=== PATIENT | female | born 1950 | race Caucasian/White ===

== ENCOUNTER → 2020-04-21 | Outpatient (CLI) | payer MEDICARE | LOC: COL.RAD 07:04 | DX: N20.0 Calculus of kidney (principal); K63.89 Other specified diseases of intestine; Z90.12 Acquired absence of left breast and nipple; Z90.49 Acquired absence of other specified parts of digestive tract; Z90.710 Acquired absence of both cervix and uterus ==

== ENCOUNTER → 2020-07-05 | Outpatient (CLI) | payer MEDICARE | LOC: COL.VAS 11:54 | DX: N18.4 Chronic kidney disease, stage 4 (severe) (principal) ==

== ENCOUNTER 2020-09-19 08:01 | Inpatient (IN) | payer MEDICARE ==
[~2020-09-19] VITALS: Ht 160 cm; Wt 93.7 kg
[2020-09-19 08:35] VITALS: BP 159/72; PULSE 66; TEMP 97.7
[2020-09-19] MEDS ORDERED: LASIX 40MG TABL40 MG PO (09:02)
[2020-09-19] MEDS ORDERED: PRILOSEC 20MG20 MG PO (09:03)
[2020-09-19] MEDS ORDERED: ZESTRIL30 MG PO (09:03)
[2020-09-19 09:26] LABS: BASO # 0.1 (0.0-0.2); BASO % 0.6 % (0.0-2.0); EOS # 0.4 (0.0-0.7); EOS % 4.3 % (0-4.0); GRAN # 7.1 (1.4-6.5); GRAN % 75.4 % (42.2-75.2); LYMPH # 1.3 (1.2-3.4); LYMPH % 13.9 % (20.0-51.0); MEAN CELL VOLUME 82 fl (80.0-100.0); MEAN CORPUSCULAR HGB CONC 32 g/dl (33.0-37.0); MEAN PLATELET VOLUME 9.5 fl (7.4-10.4); MONO # 0.5 (0.1-0.6); MONO % 5.5 % (1.7-9.3); PLATELET COUNT 204 K/mm3 (130-400); RED BLOOD COUNT 3.44 M/mm3 (4.10-5.30); REDCELL DISTRIBUTION WIDTH-CV 16.3 % (11.5-14.5)
[2020-09-19 09:28] LABS: HEMATOCRIT 28.2 % (37.0-47.0); HEMOGLOBIN 9.1 g/dl (12.5-16.0); MEAN CORPUSCULAR HEMOGLOBIN 26 pg (27.0-31.0)
[2020-09-19] MEDS ORDERED: NORVASC 5MG5 MG/TAB PO (09:28)
[2020-09-19] MEDS ORDERED: IMURAN 50MG TAB50 MG PO (09:29)
[2020-09-19] MEDS ORDERED: HYGROTON 2525 MG/TAB (09:33)
[2020-09-19 09:34] LABS: ALBUMIN 3.1 gm/dL (3.5-5.0); BILIRUBIN,TOTAL 0.5 mg/dL (0.0-1.0); CALCIUM 8.2 mg/dL (8.4-10.2); CREATININE, serum 7.27 (0.52-1.25); PHOSPHOROUS 6.5 mg/dL (2.5-4.5); POTASSIUM 3.3 mmol/L (3.4-5.0); TOTAL PROTEIN 5.4 gm/dL (6.4-8.2)
[2020-09-19] MEDS ORDERED: VITAMIN D31000 IU PO (09:35)
[2020-09-19] MEDS ORDERED: COLESTID 1GM1 G PO (09:36)
[2020-09-19] MEDS ORDERED: CYMBALTA 20MG20 MG PO (09:36)
[2020-09-19] MEDS ORDERED: AMARYL4 MG PO (09:38)
[2020-09-19] MEDS ORDERED: LANTUS SOLOS100 U/ML SQ (09:39)
[2020-09-19] MEDS ORDERED: ZOCOR 40MG40 MG PO (09:40)
[2020-09-19] MEDS ORDERED: TRANDATE300 MG PO (09:42)
[2020-09-19] MEDS ORDERED: APRESOLINE 25MG25 MG PO (09:42)
[2020-09-19] MEDS ORDERED: RITUXAN 10100 MG/10 IV (09:43)
[2020-09-19 10:41] LABS: INR 1.2 (0.8-3.0); PROTHROMBIN TIME 13.2 SECONDS (9.7-12.8)
--- NOTE | 2020-09-19 10:47 | NUR ---
Pt admission completed and charted, medications, allergies, and pharmacy reviewed w/ pt. Pt is A&O, indpendent in room, on room air, breathing is even and unlabored, reports occasional SOB, does have a cough, nonproductive. LS cta upper lobes, diminished in bases. Pt has LFA fistual, bruit and thrill present, not used for dialysis at this time. HRRR. BS active X4. BLE edema 2-3+. Pulses strong bilaterally. Pt denies any pain at this time. Pt to have dialysis cath placed this afternoon and this dialysis. No further needs at this time. Call light within reach.
[2020-09-19 11:19] VITALS: BP 146/58; PULSE 73; TEMP 97.8
--- NOTE | 2020-09-19 12:20 | NUR ---
pt down for procedure at this time and then to dialysis afterwards.
[2020-09-19 12:22] VITALS: BP 153/82; PULSE 71
--- NOTE | 2020-09-19 12:23 | NUR ---
SEE MERGE DOCUMENTATION FOR MEDICATION ADMINISRATION TIMES AND INTRA/POST PROCEDURE SEDATION ASSESSMENTS.
--- NOTE | 2020-09-19 13:15 | NUR ---
Report called from open hearth laborer on pt and dialysis cath placement. Pt headed to dialysis at this time.
--- NOTE | 2020-09-19 16:00 | NUR ---
Pt back from dialysis at this time.
[2020-09-19 16:28] VITALS: BP 161/79; PULSE 77; TEMP 98.1
--- NOTE | 2020-09-19 19:50 | NUR ---
Patient assessed at this time. Alert and oriented x 4, and able to make needs known. Denies having pain and discomfort at this time. Peripheral INT to right forearm flushed. Site without redness, warmth, swelling, and pain. AV fistula to left forearm with positive bruit and thrill. HD catheter to right chest. Denies SOB and dyspnea. LS CTA in upper lobes, diminished in lower. Respirations even and unlabored. HRR. Capillary refill less than 3 seconds. Non-tenting skin turgor. BSAx4. Abdomen soft and non-tender. 1+ edema BUE, 2+ BLE. One assist with going to the bathroom. Urine clear and yellow. Voices no questions, needs, or concerns at this time. Resting in bed with call light within reach.
[2020-09-19 20:00] VITALS: BP 173/72; PULSE 88; TEMP 99.7
--- NOTE | 2020-09-19 21:00 | NUR ---
Patient's BS was 88. Refused Levemir.
--- NOTE | 2020-09-19 22:15 | NUR ---
Patient given PRN APAP at this time for level 5 pain to HD catheter to right chest.
[2020-09-19 23:40] LABS: HEPATITIS B SURFACE ANTIBODY <2.0 (()); HEPATITIS C VIRUS ANTIBODY Negative (Negative)
[2020-09-19 23:41] LABS: HEPATITIS B SURFACE ANTIGEN Negative (Negative)
[2020-09-19 23:59] VITALS: BP 177/77; PULSE 85; TEMP 98.5
--- NOTE | 2020-09-20 00:15 | NUR ---
Patient's BP 177/77. Given PRN Appresoline at this time.
[2020-09-20 03:57] VITALS: BP 177/82; PULSE 81; TEMP 98.9
[2020-09-20 06:12] LABS: BASO # 0.1 (0.0-0.2); BASO % 0.8 % (0.0-2.0); EOS # 0.3 (0.0-0.7); EOS % 3.4 % (0-4.0); GRAN # 6.2 (1.4-6.5); GRAN % 72.7 % (42.2-75.2); LYMPH # 1.4 (1.2-3.4); LYMPH % 15.9 % (20.0-51.0); MEAN CELL VOLUME 82 fl (80.0-100.0); MEAN CORPUSCULAR HGB CONC 32 g/dl (33.0-37.0); MEAN PLATELET VOLUME 9.4 fl (7.4-10.4); MONO # 0.6 (0.1-0.6); MONO % 6.7 % (1.7-9.3); PLATELET COUNT 205 K/mm3 (130-400); RED BLOOD COUNT 3.53 M/mm3 (4.10-5.30); REDCELL DISTRIBUTION WIDTH-CV 16.6 % (11.5-14.5)
--- NOTE | 2020-09-20 06:20 | NUR ---
Patient has received PRN Hydralazine twice this shift. No further complaints of pain or discomfort since receiving PRN APAP at beginning of shift. Voices no questions, needs, or concerns at this time. Resting in bed with call light within reach.
[2020-09-20 06:25] LABS: ALBUMIN 3.1 gm/dL (3.5-5.0); CALCIUM 8.2 mg/dL (8.4-10.2); CREATININE, serum 6.35 (0.52-1.25); PHOSPHOROUS 5.6 mg/dL (2.5-4.5); POTASSIUM 3.3 mmol/L (3.4-5.0)
[2020-09-20 06:28] LABS: HEMATOCRIT 29.1 % (37.0-47.0); HEMOGLOBIN 9.4 g/dl (12.5-16.0); MEAN CORPUSCULAR HEMOGLOBIN 27 pg (27.0-31.0)
--- NOTE | 2020-09-20 08:07 | NUR ---
PATIENT IS AT DIALYSIS, NO MORNING VITALS TAKEN BECAUSE OF NOT BEING PRESENT
[2020-09-20 11:17] VITALS: BP 161/70; PULSE 85; TEMP 98.4
--- NOTE | 2020-09-20 13:50 | NUR ---
Charge Lpn attempted to meet with patient however she is sleeping. Patient's , Juan Pablo (ph#[phone]) is at bedside and answered intake questions. Patient lives in [place] with Juan Pablo and sees Dr. Macdonald for primary care. Patient obtains medications from [facility] in [place] and does not use any DME. Juan Pablo advised that patient is independent with ADLS. Juan Pablo also advised patient will have dialysis upon discharge and he plans to provide transportation. Juan Pablo advised he can provide assistance to patient at home as needed after diaylsis sessions. Patient does not have Advance Directives. Patient has been working with PT/OT and plan is to return home upon discharge.
[2020-09-20 15:34] VITALS: BP 142/78; PULSE 78; TEMP 99
--- NOTE | 2020-09-20 18:44 | NUR ---
Pt assessment completed and charted, medications administered per mar after pt returned from dialysis. pt went to dialysis this morning around 8am returned before lunch. Pt did well, denies pain, dizziness, N/V/D, chest pain, SOB. Pt appears to be doing better today and not as lethargic. pt has RIJ dialysis cath, dressing changed during dialysis, CDI. LFA fistula present w/ thrill and bruit. RFA INT IV flushes well. No BP or BS coverage today. ZORAIDA Arnett called this nurse while patient was in dialysis rating pain 7/10 to rt knee, arthritis. Mclean PRN administered per jan. No further needs expressed throughout day.
[2020-09-20 20:27] VITALS: BP 187/77; PULSE 79; TEMP 98.8
--- NOTE | 2020-09-20 21:00 | NUR ---
Patient assessed at this time. Alert and oriented x 4, and able to make needs known. Denies having pain and discomfort at this time. Peripheral INT to right forearm. AV fistula to left arm with positive bruit and thrill. HD catheter to right chest, dressing CDI. Denies SOB and dypsnea. LS CTA. Respirations even and unlabored. HRR. Capillary refill less than 3 seconds. Non-tenting skin turgor. BSAx4. Abdomen soft and non-tender. 1+ edema BLE. Voices no questions, needs, or concerns at this time. Resting in bed with call light within reach.
[2020-09-21 00:18] VITALS: BP 180/77; PULSE 83; TEMP 100
[2020-09-21 03:10] VITALS: BP 186/71; PULSE 83; TEMP 99.5
--- NOTE | 2020-09-21 05:57 | NUR ---
Patient has denied having pain and discomfort this shift. Has voiced no questions, needs, or concerns. Patient received PRN Appresoline twice this shift due to elevated BPs. Resting in bed with call light within reach.
[2020-09-21 06:22] LABS: BASO # 0.1 (0.0-0.2); BASO % 0.9 % (0.0-2.0); EOS # 0.3 (0.0-0.7); EOS % 3.5 % (0-4.0); GRAN # 5.4 (1.4-6.5); GRAN % 68.1 % (42.2-75.2); LYMPH # 1.4 (1.2-3.4); LYMPH % 17.4 % (20.0-51.0); MEAN CELL VOLUME 84 fl (80.0-100.0); MEAN CORPUSCULAR HGB CONC 32 g/dl (33.0-37.0); MEAN PLATELET VOLUME 9.5 fl (7.4-10.4); MONO # 0.7 (0.1-0.6); MONO % 9.2 % (1.7-9.3); PLATELET COUNT 211 K/mm3 (130-400); RED BLOOD COUNT 3.62 M/mm3 (4.10-5.30); REDCELL DISTRIBUTION WIDTH-CV 16.6 % (11.5-14.5)
[2020-09-21 06:24] LABS: HEMATOCRIT 30.5 % (37.0-47.0); HEMOGLOBIN 9.7 g/dl (12.5-16.0); MEAN CORPUSCULAR HEMOGLOBIN 27 pg (27.0-31.0)
[2020-09-21 06:34] LABS: ALBUMIN 3.1 gm/dL (3.5-5.0); CALCIUM 8.3 mg/dL (8.4-10.2); CREATININE, serum 5.56 (0.52-1.25); PHOSPHOROUS 4.4 mg/dL (2.5-4.5); POTASSIUM 3.6 mmol/L (3.4-5.0)
[2020-09-21 07:38] VITALS: BP 178/66; PULSE 78; TEMP 98.5
--- NOTE | 2020-09-21 08:44 | NUR ---
PATIENT IS DOWN IN DIALYSIS. REPORTING SOME DULL ACHY KNEE PAIN THAT A NORCO WAS GIVEN FOR. PATIENT IS ALERT AND ORIENTATED X4. PATIENT IS TOELRATING DIALYSIS JUST FINE.
[2020-09-21] MEDS ORDERED: PHOS LO PO (10:00)
[2020-09-21] MEDS ORDERED: LASIX 40MG TABL40 MG PO (10:00)
[2020-09-21] MEDS ORDERED: IMURAN 50MG TAB50 MG PO ×3 (10:06→10:49)
[2020-09-21] MEDS ORDERED: NORVASC 5MG5 MG/TAB PO (10:07)
[2020-09-21 12:12] VITALS: BP 164/71; PULSE 79; TEMP 99
== END 2020-09-21 13:15 | disposition home or self-care (01) | DRG 640 ==
LOC: MEDICAL 08:01
PROVIDERS: ADMIT Internal Medicine Nephrology
PROC: 0JH63XZ Insertion of Tunneled Vascular Access Device into Chest Subcutaneous Tissue and Fascia, Percutaneous Approach (ICD-10-PCS; principal; 2020-09-19)
PROC: 02H633Z Insertion of Infusion Device into Right Atrium, Percutaneous Approach (ICD-10-PCS; 2020-09-19)
PROC: 5A1D70Z Performance of Urinary Filtration, Intermittent, Less than 6 Hours Per Day (ICD-10-PCS; 2020-09-21)
DX: E87.70 Fluid overload, unspecified (principal); N18.6 End stage renal disease; I12.0 Hypertensive chronic kidney disease with stage 5 chronic kidney disease or end stage renal disease; N25.81 Secondary hyperparathyroidism of renal origin; I16.0 Hypertensive urgency; E66.9 Obesity, unspecified; M06.9 Rheumatoid arthritis, unspecified; E11.22 Type 2 diabetes mellitus with diabetic chronic kidney disease; E78.5 Hyperlipidemia, unspecified; K21.9 Gastro-esophageal reflux disease without esophagitis; F32.9 Major depressive disorder, single episode, unspecified; D63.1 Anemia in chronic kidney disease; M19.90 Unspecified osteoarthritis, unspecified site; E83.39 Other disorders of phosphorus metabolism; E83.51 Hypocalcemia; Z85.820 Personal history of malignant melanoma of skin; Z79.4 Long term (current) use of insulin; Z68.36 Body mass index [BMI] 36.0-36.9, adult
CPT/HCPCS: J1644; J2250; J2916; J3010; J7030; J7500; Q5105

== ENCOUNTER 2020-12-21 16:12 | Emergency (ER) | payer MEDICARE ==
[~2020-12-21] VITALS: Ht 160 cm; Wt 78.0 kg
[~2020-12-21 16:12] MED LIST: AMARYL4 MG PO; APRESOLINE 25MG25 MG PO; COLESTID 1GM1 G PO; CYMBALTA 20MG20 MG PO; HYGROTON 2525 MG/TAB; IMURAN 50MG TAB50 MG PO; LANTUS SOLOS100 U/ML SQ; LASIX 40MG TABL40 MG PO; NORVASC 5MG5 MG/TAB PO; PHOS LO PO; PRILOSEC 20MG20 MG PO; RITUXAN 10100 MG/10 IV; TRANDATE300 MG PO; VITAMIN D31000 IU PO; ZESTRIL30 MG PO; ZOCOR 40MG40 MG PO
[2020-12-21 16:53] LABS: BASO # 0.1 (0.0-0.2); BASO % 0.9 % (0.0-2.0); EOS # 0.3 (0.0-0.7); EOS % 3.5 % (0-4.0); GRAN # 6.3 (1.4-6.5); GRAN % 73.9 % (42.2-75.2); HEMATOCRIT 37.7 % (37.0-47.0); LYMPH # 1.2 (1.2-3.4); LYMPH % 13.8 % (20.0-51.0); MEAN CELL VOLUME 92 fl (80.0-100.0); MEAN CORPUSCULAR HEMOGLOBIN 29 pg (27.0-31.0); MEAN CORPUSCULAR HGB CONC 32 g/dl (33.0-37.0); MEAN PLATELET VOLUME 9.8 fl (7.4-10.4); MONO # 0.6 (0.1-0.6); MONO % 7.4 % (1.7-9.3); PLATELET COUNT 222 K/mm3 (130-400); RED BLOOD COUNT 4.12 M/mm3 (4.10-5.30); REDCELL DISTRIBUTION WIDTH-CV 14.8 % (11.5-14.5)
[2020-12-21 17:05] LABS: ALBUMIN 4.4 gm/dL (3.5-5.0); BILIRUBIN,TOTAL 0.8 mg/dL (0.0-1.0); CALCIUM 9.7 mg/dL (8.4-10.2); CREATININE, serum 7.39 (0.52-1.25); POTASSIUM 4.4 mmol/L (3.4-5.0); TOTAL PROTEIN 7.1 gm/dL (6.4-8.2)
[2020-12-21 17:13] VITALS: TEMP 967.9
[2020-12-21 17:16] LABS: TROPONIN-I 0.02 ng/mL (0.000-0.035)
[2020-12-21 18:30] VITALS: BP 170/93; PULSE 62
== END 2020-12-21 18:30 | disposition home or self-care (01) ==
LOC: COL.ER 16:12
PROVIDERS: Emergency Medicine
DX: E11.649 Type 2 diabetes mellitus with hypoglycemia without coma (principal); E11.22 Type 2 diabetes mellitus with diabetic chronic kidney disease; N18.6 End stage renal disease; Z79.4 Long term (current) use of insulin; Z88.8 Allergy status to other drugs, medicaments and biological substances
CPT/HCPCS: J7030

== ENCOUNTER 2021-01-09 13:15 | Observation (INO) | payer MEDICARE ==
[~2021-01-09] VITALS: Ht 160 cm; Wt 82.3 kg
--- NOTE | 2021-01-09 13:20 | NUR ---
PT ARRIVED, ASSESSMENT PERFORMED, TECH OBTAINED VITALS, PT REPORTS NAUSEA, STICKERS AND BRACELET PRINTED FOR PATIENT. CALLED PT PHARMACY FOR CURRENT MED LIST. LEFT MESSAGE FOR DR MANCILLA AT 1400 NOTIFYING HIM THAT PT HAD ARRIVED AND THAT SHE HAS A HEADACHE AND IS NAUSEOUS.
[2021-01-09 13:30] VITALS: BP 176/70; PULSE 62; TEMP 97.8
--- NOTE | 2021-01-09 14:26 | NUR ---
BS 59, JUICE GIVEN TO PT, PLACED HYPOGLYCEMIA PROTOCOL, WILL RECHECK SUGAR
--- NOTE | 2021-01-09 14:29 | NUR ---
INES RETURNED CALL, NEW ORDERS IN PLACE, NOTIFIED OF LOW SUGAR
--- NOTE | 2021-01-09 14:53 | NUR ---
BS UP TO 96
[2021-01-09] MEDS ORDERED: LEVAQUIN 750MG750 M1 PO (14:54)
[2021-01-09] MEDS ORDERED: LEVAQUIN 5500 MG/TA1 PO (14:55)
[2021-01-09] MEDS ORDERED: NORCO 325 MG-51 TAB PO (14:56)
[2021-01-09] MEDS ORDERED: CELEBREX 200MG200 MG PO (15:02)
[2021-01-09] MEDS ORDERED: NORVASC 5MG5 MG/TAB PO (15:10)
[2021-01-09] MEDS ORDERED: IMURAN 50MG TAB50 MG PO (15:12)
--- NOTE | 2021-01-09 15:21 | NUR ---
INES NOTIFIED OF [facility] BS AND THAT MED REC WAS COMPLETED.
[2021-01-09 15:34] VITALS: BP 175/69; PULSE 64; TEMP 97.3
[2021-01-09 15:46] VITALS: BP 174/70; PULSE 65; TEMP 97.9
[2021-01-09 16:41] LABS: CALCIUM 8.9 mg/dL (8.4-10.2); CREATININE, serum 7.87 (0.52-1.25); POTASSIUM 4.3 mmol/L (3.4-5.0)
[2021-01-09 17:13] VITALS: BP 161/66
--- NOTE | 2021-01-09 17:17 | NUR ---
PT AOX4, HAS PRODUCTIVE COUGH, PT PLEASANT, AT BEDSIDE, BS STABLE, BP DEC W/ HYDRALAZINE, PT DENYING PAIN, PT HAS R CHEST DIALYSIS CATH AND LFA FISTULA, NO OTHER NEEDS AT THIS TIME.
--- NOTE | 2021-01-09 19:39 | NUR ---
PATIENT WAS RECEIVED IN THE [place] [facility] IN BED.DENIES PAIN.NO OTHER NEEDS AT THIS TIME.
[2021-01-09 20:24] VITALS: BP 185/76; PULSE 71; TEMP 98.3
--- NOTE | 2021-01-09 20:45 | NUR ---
UPDATED DR MANCILLA ABOUT THE PT.BG WAS 104 HE SAID I GIVE INSULIN LEVEMIR HALF THE DOSE.PATIENT DECLINED TO HAVE INSULIN.
[2021-01-10 00:13] VITALS: BP 177/71; PULSE 66; TEMP 98.1
--- NOTE | 2021-01-10 01:11 | NUR ---
PATIENT REPORTED OF INSOMNIA DR MANCILLA INFORMED,PLAN ORDER AMBIEN 10MG PO.SAME DONE.
[2021-01-10 04:13] VITALS: BP 156/66; PULSE 76; TEMP 98.1
--- NOTE | 2021-01-10 05:44 | NUR ---
PATIENT REMAINS CALM ,DUE MEDS GIVEN.DENIES PAIN AND VOMITTING.NO OTHER CONCERNS AT THIS TIME
--- NOTE | 2021-01-10 06:29 | NUR ---
PCT INFORMED ME THAT PT BG IS 56.PATIENT GIVEN APPLE JUICE.FOR RECHECK AFTER 15 MINUTES.
[2021-01-10 07:38] VITALS: BP 180/75; PULSE 69; TEMP 98.6
--- NOTE | 2021-01-10 09:13 | NUR ---
Initial visit; Capri thanked Or First Assist Registered Nurse for looking in on her and offering God's blessings and to keep her in [employer] Assist Registered Nurse's prayers.
--- NOTE | 2021-01-10 10:28 | NUR ---
BRENNA met with the patient and her , Juan Pablo (ph#[phone]), to discuss discharge plan. The patient lives in [place] with her . She reports independence with ADLs and has a walker available when needed. The patient's PCP is Dr. Adryan Macdonald and she receives her medications from [facility] in [place]. She reports no difficulties obtaining her meds. The patient does not have a DPOA-HC in EMR, but she states that she does have one completed and that it designates her . The patient plans to return home with her upon discharge. No additional needs at this time.
--- NOTE | 2021-01-10 10:58 | NUR ---
Pt assessment completed and charted, medications administered per jan. Pt A&O, independent in room, on room air, breathing is even and unlabored, UL LS cta, bases w/ coarse crackles. Pt states she has a productive cough, not observed at this time. RFA INT IV flushes well. LFA fistula, no dressing, has not been accessed yet. Pt has Rt chest dialysis cath w/ dressing CDI. BLE trace to 1+. Pulses stong bilaterally. BS active. Pt denies chest pain, N/V/D, SOB. Pt did have SBP of 180 this morning, receiving hydralazine PRN. Pt down to dialysis at this time.
[2021-01-10 11:15] LABS: BASO # 0.1 (0.0-0.2); BASO % 0.7 % (0.0-2.0); EOS # 0.5 (0.0-0.7); EOS % 4.8 % (0-4.0); GRAN % 73.7 % (42.2-75.2); LYMPH # 1.4 (1.2-3.4); LYMPH % 14.5 % (20.0-51.0); MEAN CELL VOLUME 92 fl (80.0-100.0); MEAN CORPUSCULAR HGB CONC 32 g/dl (33.0-37.0); MEAN PLATELET VOLUME 9.8 fl (7.4-10.4); MONO # 0.6 (0.1-0.6); MONO % 5.9 % (1.7-9.3); PLATELET COUNT 304 K/mm3 (130-400); RED BLOOD COUNT 3.28 M/mm3 (4.10-5.30); REDCELL DISTRIBUTION WIDTH-CV 13.9 % (11.5-14.5)
[2021-01-10 11:16] LABS: HEMATOCRIT 30.1 % (37.0-47.0); HEMOGLOBIN 9.6 g/dl (12.5-16.0); MEAN CORPUSCULAR HEMOGLOBIN 29 pg (27.0-31.0)
[2021-01-10 11:31] LABS: ALBUMIN 3.8 gm/dL (3.5-5.0); CALCIUM 8.8 mg/dL (8.4-10.2); CREATININE, serum 9.04 (0.52-1.25); PHOSPHOROUS 5.2 mg/dL (2.5-4.5); POTASSIUM 4.3 mmol/L (3.4-5.0)
--- NOTE | 2021-01-10 11:38 | NUR ---
ZORAIDA Arnett in dialysis called this nurse to inform her pt was nauseous and requesting zofran. This nurse administered per jan PRN. Pt requested ice water as well. No vomiting at this time.
--- NOTE | 2021-01-10 14:38 | NUR ---
Patient tolerated HD tx today, nausea but resolved with Zofran IVP. Removed 800 ml of fluid. Next HD tx planned for Friday01/12/21 @ 0800.
[2021-01-10 16:08] VITALS: BP 155/60; PULSE 64; TEMP 98.1
--- NOTE | 2021-01-10 16:59 | NUR ---
The patient's status was changed to observation. SW and RN Sales Account Executive met with the patient. RN Sales Account Executive explained the status change. SW presented and read the PATEL form outloud to the patient. The patient signed the form. BRENNA provided her with a copy.
--- NOTE | 2021-01-10 17:15 | NUR ---
Pt back from dialysis this afternoon, tolerated well after receiving zofran. Pt ate a late lunch and has been napping throughout the rest of the day. Pt BS checked, resulted at 65. Given juice, will recheck.
[2021-01-10 19:33] VITALS: BP 173/64; PULSE 68; TEMP 98.8
--- NOTE | 2021-01-10 20:30 | NUR ---
PATIENT IS CALM IN THE ROOM.DUE MEDS GIVEN ASSESSMENT DONE.DENIES PAIN.NO OTHER NEEDS AT THIS TIME.
[2021-01-10 23:13] VITALS: BP 181/61; PULSE 67; TEMP 98.4
--- NOTE | 2021-01-10 23:52 | NUR ---
BP ELEVATED 181/61 APPRESOLINE 25 MG GIVEN
[2021-01-11 03:58] VITALS: BP 178/67; PULSE 65; TEMP 98.4
[2021-01-11 05:59] VITALS: BP 159/71
--- NOTE | 2021-01-11 06:06 | NUR ---
PATIENT HAD A CALM NIGHT HAD ELEVATED SYSTOLIC BP.THIS MORNING ITS 159/71.REPORTS PAIN AT .NO OTHER NEEDS AT THIS TIME.
[2021-01-11 06:35] LABS: BASO # 0.1 (0.0-0.2); BASO % 0.7 % (0.0-2.0); EOS # 0.5 (0.0-0.7); EOS % 5.5 % (0-4.0); GRAN % 72.6 % (42.2-75.2); LYMPH # 1.2 (1.2-3.4); LYMPH % 14.2 % (20.0-51.0); MEAN CELL VOLUME 94 fl (80.0-100.0); MEAN CORPUSCULAR HGB CONC 31 g/dl (33.0-37.0); MONO # 0.6 (0.1-0.6); MONO % 6.8 % (1.7-9.3); PLATELET COUNT 271 K/mm3 (130-400)
[2021-01-11 06:45] LABS: HEMATOCRIT 30.1 % (37.0-47.0); HEMOGLOBIN 9.2 g/dl (12.5-16.0); MEAN CORPUSCULAR HEMOGLOBIN 29 pg (27.0-31.0)
[2021-01-11 06:50] LABS: ALBUMIN 3.5 gm/dL (3.5-5.0); CALCIUM 8.6 mg/dL (8.4-10.2); CREATININE, serum 5.86 (0.52-1.25); POTASSIUM 4.7 mmol/L (3.4-5.0)
[2021-01-11 07:23] VITALS: BP 161/61; PULSE 66; TEMP 98.4
--- NOTE | 2021-01-11 09:00 | NUR ---
Agree with student nurse assessment. Patient is hoping to go home today. A&Ox4. VSS. IV CDI. Denies pain and discomfort. No further needs expressed from the patient. Call light within reach
[2021-01-11 11:23] VITALS: BP 162/65; PULSE 63; TEMP 98.1
[2021-01-11] MEDS ORDERED: CATAPRES 0.1MG0.1 MG PO (11:58)
--- NOTE | 2021-01-11 13:19 | NUR ---
Discharge paperwork reviewed with the patient and spouse. Patient verbalized an understanding to foolow doctors orders. IV removed, tip intact, gauze and coban applied. Patient ambulated with student nurse to vehicle. Personal belongings and discharge paperwork with the patient. No further needs expressed from the patient
--- NOTE | 2021-01-11 13:44 | NUR ---
Primary nurse was assisted with [id number] patient care by [employer] ADN student Kristyn Mckeon and [employer] instructor Neisha Maldonado RN-BC.
== END 2021-01-11 13:20 | disposition home or self-care (01) ==
LOC: MEDICAL 13:15
PROVIDERS: ADMIT Internal Medicine Nephrology
DX: J18.9 Pneumonia, unspecified organism (principal); N18.6 End stage renal disease; I12.0 Hypertensive chronic kidney disease with stage 5 chronic kidney disease or end stage renal disease; E11.22 Type 2 diabetes mellitus with diabetic chronic kidney disease; E11.649 Type 2 diabetes mellitus with hypoglycemia without coma; D64.89 Other specified anemias; E66.9 Obesity, unspecified; E78.5 Hyperlipidemia, unspecified; E83.39 Other disorders of phosphorus metabolism; K21.9 Gastro-esophageal reflux disease without esophagitis; K50.90 Crohn's disease, unspecified, without complications; M19.90 Unspecified osteoarthritis, unspecified site; M06.9 Rheumatoid arthritis, unspecified; K59.00 Constipation, unspecified; D84.9 Immunodeficiency, unspecified; F32.9 Major depressive disorder, single episode, unspecified; Z99.2 Dependence on renal dialysis; Z90.710 Acquired absence of both cervix and uterus; Z79.891 Long term (current) use of opiate analgesic; Z79.899 Other long term (current) drug therapy; Z79.4 Long term (current) use of insulin; Z85.828 Personal history of other malignant neoplasm of skin; Z90.89 Acquired absence of other organs; Z88.8 Allergy status to other drugs, medicaments and biological substances
CPT/HCPCS: A9270-GY; G0378; G0379; J1170; J1644; J1956; J2405; J7030; Q5105; Q9967

== ENCOUNTER 2021-04-13 10:51 | Day surgery (SDC) | payer MEDICARE ==
[~2021-04-13] VITALS: Ht 160 cm; Wt 82.0 kg
[~2021-04-13 10:51] MED LIST changes: +CATAPRES 0.1MG0.1 MG PO; +CELEBREX 200MG200 MG PO; +LEVAQUIN 5500 MG/TA1 PO; +LEVAQUIN 750MG750 M1 PO; +NORCO 325 MG-51 TAB PO
[2021-04-13] MEDS ORDERED: COLESTID 1GM1 G PO (11:36)
[2021-04-13 12:02] VITALS: BP 200/76; PULSE 63; TEMP 98.1
[2021-04-13 13:10] VITALS: BP 185/74; PULSE 69
--- NOTE | 2021-04-13 13:10 | NUR ---
Patient returns to room 2 per cart from surgery accompanied by Mirian CONWAY and patient is awake and alert. Dressing dry on the left IJ dialysis site. IV fluids infusing left AC and site is free of redness or swelling. Call light in reach and siderails up x2. Spouse in room. Given water to sip on.
[2021-04-13 13:25] VITALS: BP 184/72; PULSE 59
--- NOTE | 2021-04-13 13:25 | NUR ---
Resting and eating crackers. No drainage or bleeding noted from incisional area left chest.
[2021-04-13 13:40] VITALS: BP 146/59; PULSE 60
--- NOTE | 2021-04-13 13:40 | NUR ---
IV discontinued and site is free of redness or swelling. Given dismissal instructions and voices understanding of these. Assisted the patient with dressing.
--- NOTE | 2021-04-13 13:55 | NUR ---
Instructions given and voices understanding of these.
--- NOTE | 2021-04-13 13:58 | NUR ---
Patient dismissed to home driven by spouse and taken to the front door per wheelchair and assisted into vehicle with instructions in hand.
== END 2021-04-13 13:58 | disposition home or self-care (01) ==
LOC: SDCO 10:51
DX: N18.6 End stage renal disease (principal); I12.0 Hypertensive chronic kidney disease with stage 5 chronic kidney disease or end stage renal disease; E11.22 Type 2 diabetes mellitus with diabetic chronic kidney disease; I77.0 Arteriovenous fistula, acquired; M10.9 Gout, unspecified; E78.5 Hyperlipidemia, unspecified; M19.90 Unspecified osteoarthritis, unspecified site; E11.42 Type 2 diabetes mellitus with diabetic polyneuropathy; D50.0 Iron deficiency anemia secondary to blood loss (chronic); E83.39 Other disorders of phosphorus metabolism; F32.9 Major depressive disorder, single episode, unspecified; Z90.710 Acquired absence of both cervix and uterus; Z90.89 Acquired absence of other organs; Z79.899 Other long term (current) drug therapy; Z79.84 Long term (current) use of oral hypoglycemic drugs
CPT/HCPCS: C1750; J0690; J1644; J2704; J7030; Q9967

== ENCOUNTER 2021-04-22 19:58 | Emergency (ER) | payer MEDICARE ==
[~2021-04-22] VITALS: Ht 160 cm; Wt 77.3 kg
[2021-04-22 20:05] VITALS: TEMP 97.5
[2021-04-22 21:20] VITALS: BP 154/80; PULSE 67
== END 2021-04-22 21:20 | disposition home or self-care (01) ==
LOC: COL.ER 19:58
DX: M79.602 Pain in left arm (principal); I12.0 Hypertensive chronic kidney disease with stage 5 chronic kidney disease or end stage renal disease; N18.6 End stage renal disease; E66.9 Obesity, unspecified; E11.22 Type 2 diabetes mellitus with diabetic chronic kidney disease; E78.5 Hyperlipidemia, unspecified; K21.9 Gastro-esophageal reflux disease without esophagitis; F32.9 Major depressive disorder, single episode, unspecified; Z99.2 Dependence on renal dialysis; Z79.899 Other long term (current) drug therapy; Z79.84 Long term (current) use of oral hypoglycemic drugs

== ENCOUNTER 2021-05-12 09:43 | Emergency (ER) | payer MEDICARE ==
[~2021-05-12] VITALS: Ht 160 cm; Wt 77.3 kg
[2021-05-12 10:02] VITALS: TEMP 97.7
[2021-05-12 10:49] LABS: BASO # 0.1 (0.0-0.2); BASO % 1.5 % (0.0-2.0); EOS # 0.1 (0.0-0.7); EOS % 2.3 % (0-4.0); GRAN # 2.5 (1.4-6.5); HEMATOCRIT 37.1 % (37.0-47.0); HEMOGLOBIN 11.8 g/dl (12.5-16.0); LYMPH # 1.4 (1.2-3.4); LYMPH % 30.5 % (20.0-51.0); MEAN CELL VOLUME 92 fl (80.0-100.0); MEAN CORPUSCULAR HEMOGLOBIN 29 pg (27.0-31.0); MEAN CORPUSCULAR HGB CONC 32 g/dl (33.0-37.0); MEAN PLATELET VOLUME 9.7 fl (7.4-10.4); MONO # 0.6 (0.1-0.6); MONO % 12.3 % (1.7-9.3); PLATELET COUNT 193 K/mm3 (130-400); RED BLOOD COUNT 4.04 M/mm3 (4.10-5.30); REDCELL DISTRIBUTION WIDTH-CV 14.4 % (11.5-14.5)
[2021-05-12 10:58] LABS: BILIRUBIN,TOTAL 0.8 mg/dL (0.0-1.0); C-REACTIVE PROTEIN 0.6 mg/dL (0.0-0.9); CREATININE, serum 6.29 (0.52-1.25); POTASSIUM 4.9 mmol/L (3.4-5.0); TOTAL PROTEIN 6.8 gm/dL (6.4-8.2)
[2021-05-12] MEDS ORDERED: ZIRGAN5 GM OP (13:28)
[2021-05-12] MEDS ORDERED: PERCOCET 325 MG1 TA2 PO (13:28)
[2021-05-12 13:51] VITALS: BP 198/94; PULSE 64
== END 2021-05-12 14:00 | disposition home or self-care (01) ==
LOC: COL.ER 09:43
PROVIDERS: Nurse Practitioner
DX: I12.0 Hypertensive chronic kidney disease with stage 5 chronic kidney disease or end stage renal disease (principal); M79.602 Pain in left arm; B02.30 Zoster ocular disease, unspecified; Z99.2 Dependence on renal dialysis; Z79.899 Other long term (current) drug therapy
CPT/HCPCS: J2270

== ENCOUNTER 2021-07-18 03:51 | Inpatient (IN) | payer MEDICARE ==
[~2021-07-18] VITALS: Ht 160 cm; Wt 73.2 kg
[~2021-07-18 03:51] MED LIST changes: +PERCOCET 325 MG1 TA2 PO; +ZIRGAN5 GM OP
[2021-07-18 04:22] LABS: BASO % 0.4 % (0.0-2.0); EOS % 0.6 % (0-4.0); GRAN # 3.7 (1.4-6.5); GRAN % 74.6 % (42.2-75.2); HEMOGLOBIN 10.8 g/dl (12.5-16.0); LYMPH # 0.8 (1.2-3.4); LYMPH % 16.9 % (20.0-51.0); MEAN CELL VOLUME 93 fl (80.0-100.0); MEAN CORPUSCULAR HEMOGLOBIN 29 pg (27.0-31.0); MEAN CORPUSCULAR HGB CONC 32 g/dl (33.0-37.0); MEAN PLATELET VOLUME 10.1 fl (7.4-10.4); MONO # 0.4 (0.1-0.6); MONO % 7.3 % (1.7-9.3); PLATELET COUNT 188 K/mm3 (130-400); RED BLOOD COUNT 3.71 M/mm3 (4.10-5.30); REDCELL DISTRIBUTION WIDTH-CV 14.9 % (11.5-14.5)
[2021-07-18 04:25] LABS: HEMATOCRIT 34.3 % (37.0-47.0)
[2021-07-18 04:36] LABS: ALANINE AMINOTRANSFERASE 11 U/L (4-34); ALBUMIN 4.3 gm/dL (3.5-5.0); ALKALINE PHOSPHATASE 131 U/L (50-136); ANION GAP 11 mmol/L (7-16); AST,SGOT 29 U/L (15-37); BLOOD UREA NITROGEN 23 mg/dL (7-17); C-REACTIVE PROTEIN < 0.5 mg/dL (0.0-0.9); CALCIUM 8.7 mg/dL (8.4-10.2); CARBON DIOXIDE 26 mmol/L (22-30); CHLORIDE 102 mmol/L (98-107); CREATININE, serum 6.58 (0.52-1.25); GLUCOSE 48 mg/dL (74-106); POTASSIUM 4.4 mmol/L (3.4-5.0); SODIUM 140 mmol/L (137-145); TOTAL PROTEIN 6.7 gm/dL (6.4-8.2)
[2021-07-18] MEDS ORDERED: LANTUS SOLOS100 U/ML SQ (07:46)
[2021-07-18] MEDS ORDERED: APRESOLINE 25MG25 MG PO (07:48)
[2021-07-18] MEDS ORDERED: CATAPRES 0.1MG0.1 MG PO (07:49)
[2021-07-18] MEDS ORDERED: TRANDATE5 MG/ML PO (07:51)
[2021-07-18] MEDS ORDERED: CARAFATE 1GM1 G PO (07:52)
[2021-07-18] MEDS ORDERED: ATROPINE SU0.1 MG/ML PO (07:55)
[2021-07-18] MEDS ORDERED: LASIX 40MG TABL40 MG PO (07:58)
[2021-07-18] MEDS ORDERED: MINOXIDIL 2.5 PO (07:59)
[2021-07-18] MEDS ORDERED: NORCO 325 MG-51 TAB PO (08:00)
[2021-07-18 08:21] VITALS: BP 196/68; PULSE 61; TEMP 99
--- NOTE | 2021-07-18 08:30 | NUR ---
Assessment complete. Pt sitting up in bed, A&O x 4, denies pain at this time, ambulates with steady gait. Pt denies nausea or dizziness as well. IV to right forearm without s/s of complications with D10 connected but in standby d/t blood sugar above 130 x 2 checks. Fistula to left wrist with strong thrill to palpation. O2 provided via NC at 2 L/min. No further needs reported. Call light in reach.
--- NOTE | 2021-07-18 09:06 | NUR ---
Provider notified of pt's increased blood sugar, requesting to discontinue D10 which is confirmed. Pt's blood pressure is still high. Provider will discuss with dialysis nurse.
--- NOTE | 2021-07-18 09:20 | NUR ---
The patient is COVID positive. SW attempted to contact the patient to discuss discharge plan. She did not answer. SW contacted the patient's , Juan Pablo (c.ph#[phone], h.ph#[phone]), to complete intake. The patient lives outside of [place] with her . Alma reports that the patient occasionally needs assistance with ADLs and that she has a walker. He assists the patient with her ADLs, if needed. The patient's PCP is Dr. Adryan Macdonald and she receives her medications from [facility] in [place]. Juan Pablo reports no difficulties obtaining her meds. The patient does not have a DPOA-HC in EMR, but Juan Pablo believes that the patient does have one completed and that it designates him. Almeida reports no concerns with the patient returning back home with him upon discharge. The patient is currently requiring 2 liters of oxygen. SW to ask for PT/OT to be ordered. SW to continue to follow. *Discharge plan: home with *
[2021-07-18 11:29] VITALS: BP 205/82; PULSE 64; TEMP 99
[2021-07-18 16:37] VITALS: BP 180/78; PULSE 67; TEMP 98.7
--- NOTE | 2021-07-18 17:15 | NUR ---
SBP still elevated greater than 160. PRN Apresoline administered per orders. Pt on room air now with sats greater than 95%. Otherwise uneventful shift. Call light in reach.
--- NOTE | 2021-07-18 18:47 | NUR ---
Report with ZORAIDA Sparks.
--- NOTE | 2021-07-18 20:42 | NUR ---
ALERT OX4. DENIES CHEST PAIN SOA, OR DIZZY. NO GENERAL PAIN. BP MEDS GIVEN FOR HYPERTENSION ALONG W ALL PM MEDS, BENEDRYL FOR INSOMNIA AC/HS BS. RT FA INT FLUSHED. LT FA FISTULA. DIAYLSIS TOMORROW AM. POC DISCUSSED. CALL LIGHT WI REACH. LIGHT DOWN FOR REST. NEEDS MET.
[2021-07-18 21:30] VITALS: BP 192/81; PULSE 66; TEMP 99.1
[2021-07-18 23:47] VITALS: BP 188/93; PULSE 88; TEMP 99
--- NOTE | 2021-07-19 01:03 | NUR ---
APRESOLINE 25MG PO GIVEN FOR HYPERTENSION. PT DENIES TORO OR VISUAL CHANGES STATES THIS IS HER NORMAL.
--- NOTE | 2021-07-19 05:04 | NUR ---
RESTED THROUGH THE NIGHT WITHOUT INCIDENT. NEEDS MET.
[2021-07-19 05:22] VITALS: BP 166/59; PULSE 78; TEMP 99.2
[2021-07-19 09:00] LABS: BASO % 0.2 % (0.0-2.0); EOS % 0.2 % (0-4.0); GRAN # 2.7 (1.4-6.5); GRAN % 64.9 % (42.2-75.2); LYMPH # 1.1 (1.2-3.4); LYMPH % 26.5 % (20.0-51.0); MEAN CELL VOLUME 96 fl (80.0-100.0); MEAN CORPUSCULAR HGB CONC 31 g/dl (33.0-37.0); MEAN PLATELET VOLUME 10.7 fl (7.4-10.4); MONO # 0.3 (0.1-0.6); MONO % 7.7 % (1.7-9.3); PLATELET COUNT 173 K/mm3 (130-400); RED BLOOD COUNT 3.33 M/mm3 (4.10-5.30); REDCELL DISTRIBUTION WIDTH-CV 14.9 % (11.5-14.5)
[2021-07-19 09:01] LABS: HEMOGLOBIN 9.8 g/dl (12.5-16.0); MEAN CORPUSCULAR HEMOGLOBIN 29 pg (27.0-31.0)
[2021-07-19 09:07] LABS: ALBUMIN 3.9 gm/dL (3.5-5.0); ANION GAP 9 mmol/L (7-16); BLOOD UREA NITROGEN 41 mg/dL (7-17); CALCIUM 7.9 mg/dL (8.4-10.2); CARBON DIOXIDE 26 mmol/L (22-30); CHLORIDE 101 mmol/L (98-107); CREATININE, serum 8.16 (0.52-1.25); GLUCOSE 102 mg/dL (74-106); PHOSPHOROUS 5.2 mg/dL (2.5-4.5); POTASSIUM 4.8 mmol/L (3.4-5.0); SODIUM 136 mmol/L (137-145)
[2021-07-19 09:08] LABS: C-REACTIVE PROTEIN < 0.5 mg/dL (0.0-0.9)
[2021-07-19 10:18] LABS: INR 1.1 (0.8-3.0); PROTHROMBIN TIME 12.5 SECONDS (9.7-12.8)
[2021-07-19 11:27] VITALS: BP 175/68; PULSE 58; TEMP 98.7
--- NOTE | 2021-07-19 11:49 | NUR ---
SCHEDULED MEDICATIONS GIVEN. SHIFT ASSESSMENT PREFORMED. CONSENT FOR CATHETER PLACEMENT SIGNED AND ON THE CHART. PRN OXY GIVEN FOR LEG PAIN RATED AN 8/10. PATIENT DENIES ANY FURTHER PAIN, DISCOMFORT, SOA, OR N/V/D. PATIENT TAKEN DOWN FOR CATH PROCEDURE.
--- NOTE | 2021-07-19 13:55 | NUR ---
PRN ZOFRAN GIVEN FOR N/V FOLLOWING CATH PROCEDURE.
[2021-07-19 16:02] VITALS: BP 186/76; PULSE 66; TEMP 98
--- NOTE | 2021-07-19 18:30 | NUR ---
REPORT GIVEN TO [facility]. VSS. PATIENT CURRENTLY ON RA. PATIENT DENIES ANY PAIN, DISCOMFORT, SOA, OR FURTHER NEEDS AT THIS TIME. CALL LIGHT IN REACH.
[2021-07-19 20:54] VITALS: BP 169/60; PULSE 66; TEMP 99.6
[2021-07-19 23:15] VITALS: BP 177/73; PULSE 64; TEMP 98.3
--- NOTE | 2021-07-20 00:32 | NUR ---
PT ALERT AND ORIENTED IN ROOM. PT HAD COARSE CRACKLES NOTED IN LEFT LOWER LOBE, RIGHT LOBE CLEAR IN ALL MOURA. PT DENIES PAIN DURING ASSESSMENT. PT EDUCATED ON NEED FOR KEEPING RIGHT LEG STRAIGHT AFTER GROIN DIALYSIS CATHETER PLACEMENT. PT HAS DRAINAGE OVER RIGHT AC IV SITE, FLUSHED OKAY. PT CALLED, HELPED PATIENT CALL TO VISIT. PT CALL LIGHT WITHIN REACH.
--- NOTE | 2021-07-20 00:34 | NUR ---
PT BP ELEVATED, PRN APRESOLINE GIVEN PER ORDERS.
[2021-07-20 04:05] VITALS: BP 178/75; PULSE 59; TEMP 98.7
--- NOTE | 2021-07-20 04:23 | NUR ---
PT BP ELEVATED SBP 178 DURING 0400 VS. PRN APRESOLINE GIVEN PER ORDERS.
--- NOTE | 2021-07-20 04:25 | NUR ---
PT CONTINUING ON PLAN OF CARE. PT MAINTAINING STABLE SPO2 ABOVE 92% ON ROOM AIR THROUGH NIGHT. PT DENIED PAIN THIS SHIFT. PT BLOOD PRESSURES ELEVATED, MANAGED WITH SCHEDULED MEDICATIONS AND PRN MEDICATION PER ORDERS. PT SCD IN PLACE ON LEFT LEG. PT HAD MILD TEMPERATURE DURING 1999 VITAL SIGNS COLLECTION, SELF RESOLVED. PT FREE FROM INJURY THIS SHIFT.
[2021-07-20 08:02] VITALS: BP 171/63; PULSE 62; TEMP 97.9
[2021-07-20 08:13] LABS: BASO % 0.2 % (0.0-2.0); GRAN # 2.8 (1.4-6.5); GRAN % 69.1 % (42.2-75.2); LYMPH # 0.9 (1.2-3.4); LYMPH % 21.7 % (20.0-51.0); MEAN CELL VOLUME 96 fl (80.0-100.0); MEAN CORPUSCULAR HGB CONC 31 g/dl (33.0-37.0); MEAN PLATELET VOLUME 10.4 fl (7.4-10.4); MONO # 0.4 (0.1-0.6); MONO % 8.5 % (1.7-9.3); PLATELET COUNT 158 K/mm3 (130-400)
[2021-07-20 08:16] LABS: HEMATOCRIT 29.6 % (37.0-47.0); HEMOGLOBIN 9.1 g/dl (12.5-16.0); MEAN CORPUSCULAR HEMOGLOBIN 29 pg (27.0-31.0)
[2021-07-20 08:18] LABS: ALBUMIN 3.8 gm/dL (3.5-5.0); CALCIUM 7.9 mg/dL (8.4-10.2); CREATININE, serum 6.26 (0.52-1.25); PHOSPHOROUS 4.5 mg/dL (2.5-4.5); POTASSIUM 5.3 mmol/L (3.4-5.0)
[2021-07-20 12:50] VITALS: BP 186/75; PULSE 56; TEMP 98.4
[2021-07-20 16:00] VITALS: BP 195/94; PULSE 57
--- NOTE | 2021-07-20 17:43 | NUR ---
SCHEDULED MEDICATIONS GIVEN. SHIFT ASSESSMENT PREFORMED. APRESOLINE GIVEN FOR BP OVER 170. PATIENT GIVEN OXYCODONE FOR LEG PAIN RATED A 8/10. PATIENT CURRENTLY RECIEVING DIALYSIS. PATIENT DENIES ANY FURTHER PAIN, DISCOMFORT, OR FURTHER NEEDS. CALL LIGHT IN REACH.
--- NOTE | 2021-07-20 19:04 | NUR ---
PATIENT GIVEN PRN APRESOLINE FOR BP OVER 170.
[2021-07-20 20:05] VITALS: BP 177/62; PULSE 57; TEMP 98.7
--- NOTE | 2021-07-20 23:28 | NUR ---
Patient A/Ox2. Patient laying in bed comfortably upon shift start. Patient denies any pain or discomfort. Patient currently on room air. Breathing even and unlabored. No acute respiratory distress noted. Right femoral dialysis site dressing C/D/I. All scheduled meds given per JAN. Call light within reach. Will continue to monitor.
[2021-07-21 00:14] VITALS: BP 172/69; PULSE 59; TEMP 98.7
[2021-07-21 03:59] VITALS: BP 184/77; PULSE 57; TEMP 97.9
--- NOTE | 2021-07-21 06:29 | NUR ---
Patient's BP remains high over the night. PRN hydralazine given for SBP > 160. BP still remains high with PRN BM med. Patient has no symptoms. Denies headache, dizziness, N/V, SOB, or chest pain. Call light in reach. Will give report to day shift nurse.
--- NOTE | 2021-07-21 07:12 | NUR ---
Report received from ZORAIDA Teran. Pt. resting in bed w/ eyes closed. Call light in reach.
[2021-07-21 08:40] LABS: GRAN # 4.4 (1.4-6.5); LYMPH # 0.8 (1.2-3.4); MEAN CELL VOLUME 95 fl (80.0-100.0); MEAN CORPUSCULAR HGB CONC 31 g/dl (33.0-37.0); MEAN PLATELET VOLUME 10.7 fl (7.4-10.4); MONO # 0.3 (0.1-0.6); MONO % 5.9 % (1.7-9.3); PLATELET COUNT 148 K/mm3 (130-400); RED BLOOD COUNT 3.28 M/mm3 (4.10-5.30); REDCELL DISTRIBUTION WIDTH-CV 14.8 % (11.5-14.5)
[2021-07-21 08:44] LABS: HEMOGLOBIN 9.7 g/dl (12.5-16.0); MEAN CORPUSCULAR HEMOGLOBIN 30 pg (27.0-31.0)
[2021-07-21 08:45] LABS: HEMATOCRIT 31.2 % (37.0-47.0)
[2021-07-21 09:04] VITALS: BP 180/63; PULSE 53; TEMP 97.9
[2021-07-21 09:13] LABS: ALBUMIN 3.8 gm/dL (3.5-5.0); ANION GAP 9 mmol/L (7-16); BLOOD UREA NITROGEN 37 mg/dL (7-17); CALCIUM 8.3 mg/dL (8.4-10.2); CARBON DIOXIDE 25 mmol/L (22-30); CHLORIDE 104 mmol/L (98-107); CREATININE, serum 6.05 (0.52-1.25); GLUCOSE 113 mg/dL (74-106); PHOSPHOROUS 4.8 mg/dL (2.5-4.5); POTASSIUM 4.9 mmol/L (3.4-5.0); SODIUM 137 mmol/L (137-145)
[2021-07-21 09:16] LABS: C-REACTIVE PROTEIN < 0.5 mg/dL (0.0-0.9)
[2021-07-21 12:46] VITALS: BP 183/65; PULSE 53; TEMP 97.9
--- NOTE | 2021-07-21 18:59 | NUR ---
Pt. progress w/ plan of care. Pt.'s , Juan Pablo updated with plan of care. Pt.'s BP elevated today, Carol, Nurse Practitioner notified. PRN hydralazine was administered, pt. asymptomatic. Plan for pt. to get dialysis on Friday, pt. aware. No new changes otherwise. Oncoming ZORAIDA Teran made aware.
[2021-07-21 20:06] VITALS: BP 169/77; PULSE 58; TEMP 97.9
[2021-07-21 23:20] VITALS: BP 158/68; PULSE 94; TEMP 98.1
--- NOTE | 2021-07-21 23:54 | NUR ---
Patient A/Ox3. patient denies any pain or discomfort. Patient currently on room air. Breathing even and unlabored. Right femoral dialysis site dressing C/D/I. All scheduled meds given per JAN. Call light in reach. Will continue to monitor.
[2021-07-22] VITALS (7 sets, daily range): BP systolic 152–188; BP diastolic 59–87; PULSE 54–59; TEMP 97.8–98.4
--- NOTE | 2021-07-22 07:00 | NUR ---
Report received from ZORAIDA Teran. Pt in bed resting, denies needs, will continue to monitor.
--- NOTE | 2021-07-22 09:30 | NUR ---
Assessment charted. Pt resting in bed sitting up, resting quietly. LFA AV fistula strong bruit and thrill. RFA INT. R Femoral HD catheter. Discussed risks with femoral catheter and minimize ambulation. Pt agreeable. Denies pain. On RA. Will ocntinue to monitor.
[2021-07-23 05:03] VITALS: BP 193/68; PULSE 58; TEMP 98
--- NOTE | 2021-07-23 09:03 | NUR ---
Pt awake upon entry, no C/O pain at this time. Shift assessment complete, left Pt call light in reach, bed in lowest position.
[2021-07-23 09:31] LABS: BASO % 0.2 % (0.0-2.0); GRAN # 4.4 (1.4-6.5); GRAN % 80.4 % (42.2-75.2); HEMATOCRIT 28.4 % (37.0-47.0); HEMOGLOBIN 9.3 g/dl (12.5-16.0); LYMPH # 0.7 (1.2-3.4); LYMPH % 13.1 % (20.0-51.0); MEAN CELL VOLUME 89 fl (80.0-100.0); MEAN CORPUSCULAR HEMOGLOBIN 29 pg (27.0-31.0); MEAN CORPUSCULAR HGB CONC 33 g/dl (33.0-37.0); MONO # 0.3 (0.1-0.6); MONO % 5.4 % (1.7-9.3); PLATELET COUNT 160 K/mm3 (130-400); REDCELL DISTRIBUTION WIDTH-CV 14.7 % (11.5-14.5)
[2021-07-23 09:46] LABS: ALBUMIN 3.8 gm/dL (3.5-5.0); ANION GAP 14 mmol/L (7-16); BLOOD UREA NITROGEN 73 mg/dL (7-17); CALCIUM 8.1 mg/dL (8.4-10.2); CARBON DIOXIDE 20 mmol/L (22-30); CHLORIDE 102 mmol/L (98-107); CREATININE, serum 9.32 (0.52-1.25); GLUCOSE 141 mg/dL (74-106); PHOSPHOROUS 5.3 mg/dL (2.5-4.5); POTASSIUM 5.3 mmol/L (3.4-5.0); SODIUM 136 mmol/L (137-145)
[2021-07-23 09:47] LABS: C-REACTIVE PROTEIN < 0.5 mg/dL (0.0-0.9)
[2021-07-23 09:49] VITALS: BP 159/85; PULSE 59; TEMP 97.8
[2021-07-23] MEDS ORDERED: LASIX 80MG TABL80 MG PO (12:12)
[2021-07-23] MEDS ORDERED: AMARYL 2MG T2 MG/TAB PO (12:12)
--- NOTE | 2021-07-23 12:12 | NUR ---
PATIENT TOLERATED HD TX TODAY WITH 300 ML FLUID REMOVAL. NEXT PLANNED HD TX ON Friday07/27/21 @ 1445 @ [facility] IN [place].
[2021-07-23] MEDS ORDERED: ASPIRIN 32325 MG/TAB PO (12:15)
--- NOTE | 2021-07-23 14:18 | NUR ---
The patient is to discharge back home with her today, 07/23. SW attempted to contact the patient to review d/c plan. She did not answer. BRENNA contacted the patient's , Juan Pablo. Juan Pablo had no concerns about the patient returning home with him today. BRENNA read the IM form outloud to Almeida. Juan Pablo verbalized understanding and gave SW approval to sign the form on his behalf. No additional needs at this time.
--- NOTE | 2021-07-23 15:04 | NUR ---
Removed Pt femoral dialysis access line, held manual pressure for 15 minutes, had Pt flat on back for 30 minutes. Escorted Pt to entrance where it was noted that the Pt was bleeding, checked for bleeding site and femoral site noted as bleeding. Returned Pt to floor, tegaderm over site did not hold, gauze 4X4s covering access site fell off. Replaced 4X4s and held pressure for 30 minutes Pt reinforced site with 4X4s and taped using micropore tape. Pt currently laying flat on her back.
[2021-07-23 16:29] VITALS: BP 209/75; PULSE 60; TEMP 98.1
--- NOTE | 2021-07-23 17:00 | NUR ---
Pt femoral site checked, no bleeding at sits, micropore tape holding traction to site. Pt was flat on her back for 60+ minutes with a 5 Lb sandbag over the site. upon removal no bleeding noted. Pt discharged to home, discussed discharge information with Pt, answered questions. Escorted Pt to entrance, assisted into vehicle, Discussed with spouse actions to take if bleeding reoccured with Pt. Pt left with spouse via private transportation.
[2021-07-31] VITALS (7 sets, daily range): O2SAT 94–98
== END 2021-07-23 17:00 | disposition home or self-care (01) | DRG 177 ==
LOC: COL.ER 03:51 → MEDICAL 05:00
PROVIDERS: Emergency Medicine; ADMIT Internal Medicine Nephrology
PROC: 5A1D70Z Performance of Urinary Filtration, Intermittent, Less than 6 Hours Per Day (ICD-10-PCS; principal; 2021-07-23)
DX: U07.1 COVID-19 (principal); J12.82 Pneumonia due to coronavirus disease 2019; N18.6 End stage renal disease; I12.0 Hypertensive chronic kidney disease with stage 5 chronic kidney disease or end stage renal disease; E11.22 Type 2 diabetes mellitus with diabetic chronic kidney disease; E11.649 Type 2 diabetes mellitus with hypoglycemia without coma; D63.1 Anemia in chronic kidney disease; M06.9 Rheumatoid arthritis, unspecified; E66.9 Obesity, unspecified; R29.810 Facial weakness; G47.00 Insomnia, unspecified; Z90.49 Acquired absence of other specified parts of digestive tract; Z90.89 Acquired absence of other organs; Z90.710 Acquired absence of both cervix and uterus
CPT/HCPCS: J0696; J1644; J1756; J2405; J7030; J8540; Q5105

== ENCOUNTER 2021-07-27 13:32 | Inpatient (IN) | payer MEDICARE ==
[~2021-07-27] VITALS: Ht 165.1 cm; Wt 71.1 kg
[2021-07-27] VITALS (95 sets, daily range): BP systolic 127–195; BP diastolic 66–98; PULSE 46–65; TEMP 97.9; O2SAT 91–100
[~2021-07-27 13:32] MED LIST changes: +AMARYL 2MG T2 MG/TAB PO; +ASPIRIN 32325 MG/TAB PO; +ATROPINE SU0.1 MG/ML PO; +CARAFATE 1GM1 G PO; +LASIX 80MG TABL80 MG PO; +MINOXIDIL 2.5 PO; +TRANDATE5 MG/ML PO
[2021-07-27 13:56] LABS: MEAN CELL VOLUME 91 fl (80.0-100.0); MEAN CORPUSCULAR HGB CONC 32 g/dl (33.0-37.0); MEAN PLATELET VOLUME 10.8 fl (7.4-10.4); PLATELET COUNT 185 K/mm3 (130-400); REDCELL DISTRIBUTION WIDTH-CV 15.1 % (11.5-14.5)
[2021-07-27 13:59] LABS: HEMOGLOBIN 9.3 g/dl (12.5-16.0); MEAN CORPUSCULAR HEMOGLOBIN 29 pg (27.0-31.0)
[2021-07-27 14:00] LABS: ARTERIAL BLOOD GAS PO2 239.2 mmHg (80-100); ARTERIAL BLOOD GAS pH 7.52 (7.35-7.45)
[2021-07-27 14:01] LABS: ARTERIAL BLD GAS O2 SATURATION 99.2 % (92-100); ARTERIAL BLOOD GAS BASE EXCESS -2.7 (-2-2); ARTERIAL BLOOD GAS HCO3 19.1 meq/L (22-26)
[2021-07-27 14:07] LABS: ALBUMIN 3.8 gm/dL (3.5-5.0); BILIRUBIN,TOTAL 0.9 mg/dL (0.0-1.0); CALCIUM 8.1 mg/dL (8.4-10.2); CREATININE, serum 7.27 (0.52-1.25); POTASSIUM 5.4 mmol/L (3.4-5.0); TOTAL PROTEIN 6.2 gm/dL (6.4-8.2)
[2021-07-27 14:21] LABS: TROPONIN-I 0.061 ng/mL (0.000-0.035)
[2021-07-27 14:29] LABS: BAND 10 % (0-10); EOSINOPHIL 1 % (0-4); LYMPHOCYTE 14 % (20.0-51.0); NEUTROPHILS 73 % (42.0-75.2)
[2021-07-27 14:30] LABS: ANISOCYTOSIS 1+; HYPOCHROMIA 1+; PLATELET ESTIMATE NORMAL (NORMAL)
--- NOTE | 2021-07-27 21:10 | NUR ---
PATIENT ARRIVES FROM ER/ PLACED IN BED ONTO MONITOR/ PLACED 16 FR OG, PLACED A 16 JACOB, 75 CC RESIDUAL, 2140 XRAY IN TO GET CHEST VIEW, ETUBE OG PLACED CORRECTLY,
[2021-07-27 21:32] LABS: ARTERIAL BLOOD GAS BASE EXCESS -4.2 (-2-2); ARTERIAL BLOOD GAS HCO3 20.4 meq/L (22-26); ARTERIAL BLOOD GAS PCO2 35.6 mmHg (35-45); ARTERIAL BLOOD GAS PO2 55.7 mmHg (80-100); ARTERIAL BLOOD GAS pH 7.38 (7.35-7.45)
[2021-07-27 21:42] LABS: INR 1.3 (0.8-3.0); PROTHROMBIN TIME 14.4 SECONDS (9.7-12.8)
--- NOTE | 2021-07-27 21:56 | NUR ---
PATIENT WAS INTUBATED AT 1945, 7.5 22@TH. INTUBATION ITSELF WAS SMOOTH, PATIENT PLACED ON VENT WITH INITIAL SETTINGS OF VT 500, FI02 100, RR 16, PEEP OF 6. DR GONZALEZ THEN REQUESTED THE SETTINGS GET CHANGED TO VT OF 450, PEEP 12, RR 20. ABG DONE AT 2100, WITH VENT ADJUSTMENTS AFTERWARDS. REPEAT ABG WILL BE DONE AROUNF 2230. PATIENT NOW RESTING IN ICU 4.
--- NOTE | 2021-07-27 23:00 | NUR ---
Vancomycin Initial Dosing Pharmacy Note Ordering provider: Carlos Gomez MD Indication/duration: Sepsis/PNA x 7 days Relevant comorbidities: DM2, HTN, recent COVID, CKD - dialysis MWF LABS: WBC = 5.2, Tmax = 102.1 F, SCr = 7.27 Recommendation: Will draw levels and dose based on results. Loading dose: 1.5 grams Maintenance dose: Based on levels. Trough goal: 15-20 ug/mL
[2021-07-27 23:56] LABS: ARTERIAL BLD GAS O2 SATURATION 99.1 % (92-100); ARTERIAL BLD GAS TCO2 CT 19.9; ARTERIAL BLOOD GAS BASE EXCESS -5.3 (-2-2); ARTERIAL BLOOD GAS PCO2 31.9 mmHg (35-45); ARTERIAL BLOOD GAS PO2 213.7 mmHg (80-100); ARTERIAL BLOOD GAS pH 7.39 (7.35-7.45)
[2021-07-28] VITALS (739 sets, daily range): BP systolic 103–174; BP diastolic 64–108; PULSE 41–73; TEMP 97.1–99.7; O2SAT 91–100
[2021-07-28 04:51] LABS: ARTERIAL BLD GAS O2 SATURATION 98.7 % (92-100); ARTERIAL BLOOD GAS BASE EXCESS -5.7 (-2-2); ARTERIAL BLOOD GAS HCO3 18.8 meq/L (22-26); ARTERIAL BLOOD GAS PO2 157.4 mmHg (80-100); ARTERIAL BLOOD GAS pH 7.37 (7.35-7.45)
[2021-07-28 05:50] LABS: MEAN CELL VOLUME 95 fl (80.0-100.0); MEAN CORPUSCULAR HGB CONC 31 g/dl (33.0-37.0); MEAN PLATELET VOLUME 11.3 fl (7.4-10.4); PLATELET COUNT 129 K/mm3 (130-400); RED BLOOD COUNT 2.84 M/mm3 (4.10-5.30); REDCELL DISTRIBUTION WIDTH-CV 14.8 % (11.5-14.5)
--- NOTE | 2021-07-28 05:50 | NUR ---
PATIENT JUST INTUBATED/ NO VACATION THIS AM
[2021-07-28 06:09] LABS: HEMOGLOBIN 8.3 g/dl (12.5-16.0); MEAN CORPUSCULAR HEMOGLOBIN 29 pg (27.0-31.0)
[2021-07-28 06:16] LABS: BILIRUBIN,TOTAL 0.8 mg/dL (0.0-1.0); CALCIUM 7.4 mg/dL (8.4-10.2); CREATININE, serum 7.86 (0.52-1.25); TOTAL PROTEIN 5.2 gm/dL (6.4-8.2)
[2021-07-28 06:18] LABS: POTASSIUM 6.6 mmol/L (3.4-5.0)
[2021-07-28 07:02] LABS: BAND 3 % (0-10); BASOPHIL 2 % (0-2); HYPOCHROMIA 3+; LYMPHOCYTE 20 % (20.0-51.0); METAMYELOCYTE 2 % (0-0); NEUTROPHILS 70 % (42.0-75.2); PLATELET ESTIMATE DECREASED (NORMAL)
--- NOTE | 2021-07-28 10:35 | NUR ---
Patient not responding to verbal or physical stimuli despite decreasing sedation. Will stop propofol at this time per Dr. Cherry. Can initiate Versed if patient awakens. Will continue to monitor.
--- NOTE | 2021-07-28 11:00 | NUR ---
Unable to obtain axillary temperature. Dr. Cherry notified. Will obtain rectal temp.
--- NOTE | 2021-07-28 11:00 | NUR ---
Patient opens eyes on command. Unable to squeeze this nurses hands, but shook head "yes" and "no" appropriately to simple questions.
[2021-07-28 13:19] LABS: MAGNESIUM 1.7 mg/dL (1.6-2.3); PHOSPHOROUS 6.6 mg/dL (2.5-4.5)
[2021-07-28 13:26] LABS: PRE ALBUMIN 12.8 mg/dL (17.6-36.0)
[2021-07-28 13:46] LABS: CALCIUM 7.5 mg/dL (8.4-10.2); CREATININE, serum 8.04 (0.52-1.25)
[2021-07-28 13:54] LABS: POTASSIUM 5.9 mmol/L (3.4-5.0)
--- NOTE | 2021-07-28 16:30 | NUR ---
Temperature 98.6 axillary. Removed warming blanket at this time. Will continue to monitor.
--- NOTE | 2021-07-28 16:35 | NUR ---
PATIENT TOLERATED HD TX WITH 3.5L OF FLUID REMOVED. NEXT PLANNED HD TX PENDING LABS & ASSESSMENT.
--- NOTE | 2021-07-28 17:00 | NUR ---
Sedation vacation not performed as patient is on minimal sedation and awakens easily with light arousal.
[2021-07-28 17:58] LABS: COLLECTION METHOD CLEAN CATCH
[2021-07-28 18:04] LABS: MUCOUS Present /lpf; PH 6 (5-8); SQUAMOUS EPITHELIAL 0-2 /hpf; URINE APPEARANCE Hazy; URINE BACTERIA None Seen /hpf; URINE BILIRUBIN Negative (NEGATIVE); URINE BLOOD 1+ (NEGATIVE); URINE COLOR Yellow; URINE GLUCOSE 2+ (NEGATIVE); URINE KETONE Negative (NEGATIVE); URINE LEUKOCYTE ESTERASE Trace (NEGATIVE); URINE NITRATE Negative (NEGATIVE); URINE PROTEIN(semi-quant) 3+ (NEGATIVE); URINE RBC 0-2 /hpf; URINE UROBILINOGEN Negative (NEGATIVE)
--- NOTE | 2021-07-28 20:30 | NUR ---
INCREASED VERSED GTT TO 3MG/HR. PT RESTLESS AND ATTEMPTING TO SIT UP IN BED.
--- NOTE | 2021-07-28 22:38 | NUR ---
PT CONTINUES TO BE RESTLESS AND UNCOMFORTABLE. ABLE TO SHAKE HEAD YES THAT SHE IS UNCOMFORTABLE. INCREASED BP. VERSED GTT INCREASED TO 3MG/HR AND FENTANYL GTT INCREASED TO 75 MCG/HR.
[2021-07-29] VITALS (698 sets, daily range): BP systolic 121–181; BP diastolic 60–112; PULSE 69–124; TEMP 97.7–101.9; O2SAT 89–100
--- NOTE | 2021-07-29 00:23 | NUR ---
SPOKE WITH BRII CONWAY AT [facility] REGARDING PT'S TEMP OF 101.9. BRII CONWAY TO JEET BELL.
[2021-07-29 05:23] LABS: MEAN CORPUSCULAR HGB CONC 32 g/dl (33.0-37.0); MEAN PLATELET VOLUME 10.8 fl (7.4-10.4); PLATELET COUNT 165 K/mm3 (130-400); RED BLOOD COUNT 3.35 M/mm3 (4.10-5.30); REDCELL DISTRIBUTION WIDTH-CV 14.8 % (11.5-14.5)
[2021-07-29 05:25] LABS: HEMATOCRIT 30.1 % (37.0-47.0); HEMOGLOBIN 9.6 g/dl (12.5-16.0); MEAN CELL VOLUME 90 fl (80.0-100.0); MEAN CORPUSCULAR HEMOGLOBIN 29 pg (27.0-31.0)
[2021-07-29 05:31] LABS: ARTERIAL BLD GAS O2 SATURATION 92.2 % (92-100); ARTERIAL BLD GAS TCO2 CT 28.1; ARTERIAL BLOOD GAS BASE EXCESS 3.7 (-2-2); ARTERIAL BLOOD GAS pH 7.49 (7.35-7.45)
[2021-07-29 05:42] LABS: ALBUMIN 3.1 gm/dL (3.5-5.0); BILIRUBIN,TOTAL 0.7 mg/dL (0.0-1.0); CALCIUM 7.1 mg/dL (8.4-10.2); CREATININE, serum 6.22 (0.52-1.25); MAGNESIUM 1.7 mg/dL (1.6-2.3); POTASSIUM 4.2 mmol/L (3.4-5.0); TOTAL PROTEIN 5.2 gm/dL (6.4-8.2)
[2021-07-29 05:47] LABS: BAND 4 % (0-10); LYMPHOCYTE 8 % (20.0-51.0); NEUTROPHILS 87 % (42.0-75.2); PLATELET ESTIMATE NORMAL (NORMAL)
--- NOTE | 2021-07-29 06:53 | NUR ---
PT TOLERATING VENT WELL. DID HAVE INCREASE IN BP OVERNIGHT AND SEDATION WAS THEN INCREASED. PT FEBRILE OVERNIGHT, PRN TYLENOL GIVEN. LAST TEMP 100.4. PT TOLERATED SEDATION VACATION THIS AM. PT ABLE TO FOLLOWS COMMANDS.
--- NOTE | 2021-07-29 06:56 | NUR ---
PT TOLERATED TUBE FEED. MAX RESIDUAL OF 10ML. INCREASED RATE TO 20ML/HR.
--- NOTE | 2021-07-29 08:00 | NUR ---
Patient resting comfortably on ventilator but arouses easily. Will shake head yes and no to questions. Patient appears very weak and unable to squeeze both hands at this time. PT to work with patient this morning. Tolerating ventilator well. Will continue to monitor.
--- NOTE | 2021-07-29 09:07 | NUR ---
Updated on patient condition via telephone. All questions and concerns addressed.
--- NOTE | 2021-07-29 10:15 | NUR ---
Patient had a temp of 101 this am. PRN tylenol administered through the OG tube. Upon recheck temp is 100.0. Dr. Cherry notified. Will continue to monitor.
--- NOTE | 2021-07-29 15:35 | NUR ---
SW completed intake with spouse Juan Pablo [phone]. provides that patient lives with him in [facility], patient uses a walker occasionally, and is independent with ADL's. provides that patient's PCP is Dr. Espinal, pharmacy is [facility] in [place]. also states he is appointed as patients DPOA. He also states he will need assistance when patient discharges with some questions, but states that he did not have any questions at this time. SW will continue to follow. DC plan: Home/[place]
--- NOTE | 2021-07-29 18:35 | NUR ---
Notified by food equipment service technician that patient had converted to A-fib RVR. HR 100's -140's. Other VS stable. RT called to obtain EKG to confirm. Dr. Gomez notified. See EMAR for med orders.
--- NOTE | 2021-07-29 21:19 | NUR ---
UPDATED DR. MANCILLA ON HEART RATE 120-130'S A FIB WITH RVR. CARDIZEM GTT AT 15MG/HR AND AMIODARONE 400 MG PER OG GIVEN APPROX 1 HOUR AGO. NO NEW ORDERS RECEIVED BUT TO MONITOR.
[2021-07-30] VITALS (655 sets, daily range): BP systolic 116–152; BP diastolic 56–88; PULSE 75–115; TEMP 98.7–101.4; O2SAT 72–100
[2021-07-30 05:01] LABS: ARTERIAL BLD GAS O2 SATURATION 92.4 % (92-100); ARTERIAL BLD GAS TCO2 CT 23.5; ARTERIAL BLOOD GAS BASE EXCESS -1.9 (-2-2); ARTERIAL BLOOD GAS HCO3 22.4 meq/L (22-26); ARTERIAL BLOOD GAS PCO2 36.1 mmHg (35-45); ARTERIAL BLOOD GAS PO2 69.9 mmHg (80-100); ARTERIAL BLOOD GAS pH 7.41 (7.35-7.45)
[2021-07-30 05:18] LABS: MEAN CELL VOLUME 94 fl (80.0-100.0); MEAN CORPUSCULAR HEMOGLOBIN 29 pg (27.0-31.0); MEAN CORPUSCULAR HGB CONC 31 g/dl (33.0-37.0); MEAN PLATELET VOLUME 11.3 fl (7.4-10.4); PLATELET COUNT 164 K/mm3 (130-400); RED BLOOD COUNT 3.47 M/mm3 (4.10-5.30)
[2021-07-30 05:23] LABS: HEMATOCRIT 32.5 % (37.0-47.0)
[2021-07-30 05:36] LABS: ALBUMIN 3.1 gm/dL (3.5-5.0); BILIRUBIN,TOTAL 0.7 mg/dL (0.0-1.0); CALCIUM 7.3 mg/dL (8.4-10.2); CREATININE, serum 7.25 (0.52-1.25); POTASSIUM 4.5 mmol/L (3.4-5.0); TOTAL PROTEIN 5.4 gm/dL (6.4-8.2)
[2021-07-30 05:48] LABS: ANISOCYTOSIS 1+; BAND 1 % (0-10); EOSINOPHIL 1 % (0-4); HYPOCHROMIA 3+; LYMPHOCYTE 9 % (20.0-51.0); NEUTROPHILS 87 % (42.0-75.2); PLATELET ESTIMATE NORMAL (NORMAL)
--- NOTE | 2021-07-30 05:59 | NUR ---
SEDATION HALFED. PT RESPONDS TO PAIN, DOES NOT FOLLOW COMMANDS. RT REPORTS WEANING TRIAL TO HAPPEN DURING NEXT SHIFT.
[2021-07-30 06:12] LABS: MAGNESIUM 2.1 mg/dL (1.6-2.3); PHOSPHOROUS 6.7 mg/dL (2.5-4.5)
--- NOTE | 2021-07-30 14:34 | NUR ---
PATIENT TOLERATED HD TX WITH 3.1L FLUID REMOVAL. NEXT PLANNED HD TX PENDING LABS & ASSESSMENT.
[2021-07-30 15:22] LABS: MAGNESIUM 2.2 mg/dL (1.6-2.3); PHOSPHOROUS 6.7 mg/dL (2.5-4.5)
--- NOTE | 2021-07-30 17:00 | NUR ---
NO SEDATION CHANGED AT THIS TIME. PT OPENS HER EYES TO VOICE AND MOVES EXTREMITIES. PT DOES NOT FOLLOW COMMANDS. WILL CONTINUE TO MONITOR.
[2021-07-31] VITALS (669 sets, daily range): BP systolic 106–158; BP diastolic 65–99; PULSE 64–89; TEMP 97.5–98; O2SAT 88–100
--- NOTE | 2021-07-31 05:21 | NUR ---
PT OPENS EYES TO NAME, DOES NOT FOLLOW ANY COMMANDS. WILL MOVE EXTREMETIES. VERSED DECREASED TO 1MG/HR. FENT REMAINS AT 25MCG/HR.
[2021-07-31 05:37] LABS: HEMOGLOBIN 10.2 g/dl (12.5-16.0); MEAN CELL VOLUME 93 fl (80.0-100.0); MEAN CORPUSCULAR HEMOGLOBIN 29 pg (27.0-31.0); MEAN CORPUSCULAR HGB CONC 31 g/dl (33.0-37.0); MEAN PLATELET VOLUME 11.8 fl (7.4-10.4); PLATELET COUNT 163 K/mm3 (130-400); RED BLOOD COUNT 3.53 M/mm3 (4.10-5.30); REDCELL DISTRIBUTION WIDTH-CV 14.8 % (11.5-14.5)
[2021-07-31 05:44] LABS: HEMATOCRIT 32.7 % (37.0-47.0)
[2021-07-31 05:48] LABS: ARTERIAL BLD GAS TCO2 CT 24.7; ARTERIAL BLOOD GAS BASE EXCESS -1.1 (-2-2); ARTERIAL BLOOD GAS HCO3 23.5 meq/L (22-26); ARTERIAL BLOOD GAS PCO2 38.5 mmHg (35-45); ARTERIAL BLOOD GAS PO2 67.9 mmHg (80-100)
[2021-07-31 05:50] LABS: ALBUMIN 3.1 gm/dL (3.5-5.0); BILIRUBIN,TOTAL 0.6 mg/dL (0.0-1.0); CALCIUM 8.2 mg/dL (8.4-10.2); CREATININE, serum 6.57 (0.52-1.25); MAGNESIUM 2.3 mg/dL (1.6-2.3); POTASSIUM 4.7 mmol/L (3.4-5.0); TOTAL PROTEIN 5.4 gm/dL (6.4-8.2)
[2021-07-31 06:19] LABS: ANISOCYTOSIS 1+; BAND 6 % (0-10); HYPOCHROMIA 1+; LYMPHOCYTE 10 % (20.0-51.0); NEUTROPHILS 82 % (42.0-75.2); POIKILOCYTOSIS 1+
[2021-07-31 06:20] LABS: OVALOCYTES 1+; PLATELET ESTIMATE NORMAL (NORMAL)
--- NOTE | 2021-07-31 07:00 | NUR ---
PT IS INTUBATED AND SEDATED. PT ON SLIGHT DOESES OF VERSED AND FENT. PT IS IN AFIB BUT RATE CONTROLLED. OTHER VSS. WILL CONITUE TO MONITOR.
--- NOTE | 2021-07-31 08:12 | NUR ---
SEDATION STOPPED PER FOR VENT WEANING TRIAL.
--- NOTE | 2021-07-31 12:43 | NUR ---
PT BECAME AGGITATED AND RESTLESS. PT WIGGYING OUT OF BED. PT ENAMEL SHADER FOR VENT AND CORDS. BOLUS OF VERSED GIVEN. PT BOOSTED AND REPOSITIONED. RESTRAINTS RETIED. WILL CONTINUE TO MONITOR.
--- NOTE | 2021-07-31 14:10 | NUR ---
NOTIFIED OF PT MORE AWAKE AND RESTLESS. PT STILL UNABLE TO FOLLOW COMMANDS. WILL RESTART IV DRIP SEDATION AT THIS TIME. AND IF NO IMPROVEMENT IN MENTATION LATER TONIGHT WILL DO HEAD CT.
--- NOTE | 2021-07-31 16:52 | NUR ---
NO SEDATION VACATION AT THIS TIME. PREVOUSLY PT OFF ALL SEDATION SINCE 911. PT BECAME RESTLESS AND AGITATED. PT OPENES EYES TO VOICE, MOVES ALL EXTREMITIES, AND ATTEMPTS TO PULL AT LINES. PT RESTARTED ON IV SEDATION. WILL CONTINUE TO MONITOR.
--- NOTE | 2021-07-31 23:15 | NUR ---
PATIENT FOLLOWS COMMAND, TURNS TOWARDS VOICE, WILL SQUEEZE HANDS ON REQUEST,
[2021-08-01] VITALS (703 sets, daily range): BP systolic 99–164; BP diastolic 66–102; PULSE 67–90; TEMP 97.5–98.3; O2SAT 83–100
[2021-08-01 05:17] LABS: BASO % 0.2 % (0.0-2.0); GRAN # 3.5 (1.4-6.5); LYMPH # 0.5 (1.2-3.4); LYMPH % 11.9 % (20.0-51.0); MEAN CELL VOLUME 93 fl (80.0-100.0); MEAN CORPUSCULAR HGB CONC 31 g/dl (33.0-37.0); MEAN PLATELET VOLUME 11.4 fl (7.4-10.4); MONO # 0.1 (0.1-0.6); MONO % 2.4 % (1.7-9.3); PLATELET COUNT 186 K/mm3 (130-400); RED BLOOD COUNT 3.31 M/mm3 (4.10-5.30); REDCELL DISTRIBUTION WIDTH-CV 14.6 % (11.5-14.5)
[2021-08-01 05:20] LABS: HEMATOCRIT 30.7 % (37.0-47.0); HEMOGLOBIN 9.6 g/dl (12.5-16.0); MEAN CORPUSCULAR HEMOGLOBIN 29 pg (27.0-31.0)
[2021-08-01 05:30] LABS: ALBUMIN 3.1 gm/dL (3.5-5.0); BILIRUBIN,TOTAL 0.6 mg/dL (0.0-1.0); CALCIUM 8.3 mg/dL (8.4-10.2); CREATININE, serum 7.39 (0.52-1.25); POTASSIUM 4.1 mmol/L (3.4-5.0); TOTAL PROTEIN 5.4 gm/dL (6.4-8.2)
--- NOTE | 2021-08-01 10:27 | NUR ---
PATIENT TOLERATED HD TX WITH 1.5L FLUID REMOVAL TODAY. NEXT HKD TX PLANNED ON Friday08/03/21 @ 0800.
--- NOTE | 2021-08-01 11:30 | NUR ---
Assisted with repositioning and dom-care. Patient opens eyes spontaneously and with physical stimulation but not following commands at this time. Sedation reduced; will continue to monitor.
[2021-08-01 14:07] LABS: ARTERIAL BLD GAS O2 SATURATION 93.6 % (92-100); ARTERIAL BLD GAS TCO2 CT 24.3; ARTERIAL BLOOD GAS BASE EXCESS -0.3 (-2-2); ARTERIAL BLOOD GAS HCO3 23.3 meq/L (22-26); ARTERIAL BLOOD GAS PO2 71.6 mmHg (80-100); ARTERIAL BLOOD GAS pH 7.45 (7.35-7.45)
--- NOTE | 2021-08-01 14:55 | NUR ---
Dr. Cherry notified about latest ABG results.
--- NOTE | 2021-08-01 19:30 | NUR ---
Received report from ZORAIDA Costa.
--- NOTE | 2021-08-01 20:13 | NUR ---
Updated Dr. Cherry on patient status. Requested to have sedation turned back up and to place back on assist control mode from CPAP trial. Will turn off all sedation at [address] CPAP trial. Will make determination about extubation at that time.
[2021-08-02] VITALS (727 sets, daily range): BP systolic 117–196; BP diastolic 76–134; PULSE 54–92; TEMP 97.4–98.8; O2SAT 95–100
[2021-08-02 04:27] LABS: ARTERIAL BLD GAS O2 SATURATION 95.9 % (92-100); ARTERIAL BLD GAS TCO2 CT 24.1; ARTERIAL BLOOD GAS BASE EXCESS -1.2 (-2-2); ARTERIAL BLOOD GAS PCO2 36.3 mmHg (35-45); ARTERIAL BLOOD GAS PO2 88.5 mmHg (80-100); ARTERIAL BLOOD GAS pH 7.42 (7.35-7.45)
[2021-08-02 05:11] LABS: GRAN # 5.4 (1.4-6.5); GRAN % 87.7 % (42.2-75.2); LYMPH # 0.5 (1.2-3.4); LYMPH % 8.2 % (20.0-51.0); MEAN CELL VOLUME 92 fl (80.0-100.0); MEAN CORPUSCULAR HGB CONC 31 g/dl (33.0-37.0); MEAN PLATELET VOLUME 11.6 fl (7.4-10.4); MONO # 0.2 (0.1-0.6); MONO % 3.4 % (1.7-9.3); PLATELET COUNT 207 K/mm3 (130-400); RED BLOOD COUNT 3.16 M/mm3 (4.10-5.30); REDCELL DISTRIBUTION WIDTH-CV 14.6 % (11.5-14.5)
[2021-08-02 05:12] LABS: HEMOGLOBIN 9.1 g/dl (12.5-16.0); MEAN CORPUSCULAR HEMOGLOBIN 29 pg (27.0-31.0)
[2021-08-02 05:28] LABS: CALCIUM 8.2 mg/dL (8.4-10.2); CREATININE, serum 5.25 (0.52-1.25); MAGNESIUM 2.3 mg/dL (1.6-2.3); POTASSIUM 4.4 mmol/L (3.4-5.0)
--- NOTE | 2021-08-02 08:30 | NUR ---
Patient restless in bed; pulling at restraints and moving all four extremities. Sedation stopped to assess mentation. Patient eyes are open but does not follow any purposeful command. Dr. Cherry aware and plan of care discussed. Will take for CT of head and return to regular ventilator settings from CPAP trial.
--- NOTE | 2021-08-02 11:38 | NUR ---
Returned from CT; tolerated well.
--- NOTE | 2021-08-02 12:15 | NUR ---
Patient has been anuric; producing approximately 30 ml per day. Tunde Crawford'd per Dr. Gomez.
--- NOTE | 2021-08-02 18:30 | NUR ---
Restless and moving all around in bed and pulling at restraints. Still not alert and following commands. Attempted to use verbal cues to calm patient; not effective. Sedation increased at this time.
--- NOTE | 2021-08-02 19:15 | NUR ---
RECEIVED REPORT FROM ZORAIDA HERNANDEZ.
--- NOTE | 2021-08-02 23:46 | NUR ---
Patient's DBPs consistently 110-120s for approximately two hours. Patient opens eyes spontaneously although does not track movements or following verbal commands. She frequently moves extremities within the bed; at one time, this RN noted patient to have nearly shifted legs entirely off of the mattress. PRN hydralazine administered at 2315. Little to no effect noted within 30 minutes. Patient grimacing and overbreathing the ventilator, with rates mid-high 30s. PRN fentanyl push administered and versed drip restarted. Patient resting quietly in bed; respiratory rate mid 20s. DBPs improving; still greater than 100 but less than 110.
[2021-08-03] VITALS (680 sets, daily range): BP systolic 99–154; BP diastolic 84–109; PULSE 89–134; TEMP 98–99.3; O2SAT 65–100
[2021-08-03 04:11] LABS: ARTERIAL BLD GAS O2 SATURATION 97.3 % (92-100); ARTERIAL BLD GAS TCO2 CT 22.1; ARTERIAL BLOOD GAS BASE EXCESS -2.1 (-2-2); ARTERIAL BLOOD GAS HCO3 21.1 meq/L (22-26); ARTERIAL BLOOD GAS PCO2 31.5 mmHg (35-45); ARTERIAL BLOOD GAS PO2 104.9 mmHg (80-100); ARTERIAL BLOOD GAS pH 7.44 (7.35-7.45)
[2021-08-03 05:34] LABS: GRAN # 5.9 (1.4-6.5); GRAN % 84.3 % (42.2-75.2); LYMPH # 0.8 (1.2-3.4); LYMPH % 10.9 % (20.0-51.0); MEAN CELL VOLUME 89 fl (80.0-100.0); MEAN CORPUSCULAR HEMOGLOBIN 29 pg (27.0-31.0); MEAN CORPUSCULAR HGB CONC 33 g/dl (33.0-37.0); MEAN PLATELET VOLUME 11.4 fl (7.4-10.4); MONO # 0.2 (0.1-0.6); MONO % 3.4 % (1.7-9.3); PLATELET COUNT 232 K/mm3 (130-400); RED BLOOD COUNT 3.41 M/mm3 (4.10-5.30); REDCELL DISTRIBUTION WIDTH-CV 14.8 % (11.5-14.5)
[2021-08-03 05:39] LABS: HEMATOCRIT 30.4 % (37.0-47.0)
[2021-08-03 05:50] LABS: CALCIUM 8.6 mg/dL (8.4-10.2); CREATININE, serum 7.17 mg/dL (0.57-1.11); POTASSIUM 4.9 mmol/L (3.5-4.5)
--- NOTE | 2021-08-03 07:30 | NUR ---
REPORT RECEIVED FROM ZORAIDA VALLES
--- NOTE | 2021-08-03 09:30 | NUR ---
RECEIVED PHONE CALL FROM PRIYANK (PATIENT'S NEPHEW) ASKING IF HE AND THE PATIENT'S SISTER COULD COME VISIT THE PATIENT "BEFORE THEY TAKE HER OFF THE VENTILATOR." I REPSOND WITH GETTING HIS CONTACT INFORMATION SO I CAN GET ALL DETAILS ABOUT PLAN OF CARE PRIOR TO DISCUSSING HAVING VISITORS COME IN. SOY, RN FOR HEMODIALYSIS, IS HER SETTING UP. I ASK HER TO CALL DR MANCILLA TO CLARIFY PLAN AND MAKE SURE WE ARE STILL DOING DIALYSIS ON THIS PATIENT BASED OFF THE PHONE CALL I JUST RECEIVED. SHE CALLS DR. MANCILLA WHO STATES THAT TAKING HER OFF THE VENTILATOR IS NOT PART OF THE PLAN AT THIS TIME AND TO PROCEED WITH DIALYSIS. SHE STATES THAT HE WAS ANGRY WITH HER ON THE PHONE FOR ASKING ABOUT TAKING HER OFF THE VENTILATOR. I WILL AWAIT FURTHER INFORMATION ABOUT THE PLAN OF CARE FOR THIS PATIENT
--- NOTE | 2021-08-03 13:05 | NUR ---
PATIENT TOLERATED HD TX WITH 3L FLUID REMOVAL TODAY. NEXT PLANNED HD TX ON Friday08/06/21 @ 0800.
--- NOTE | 2021-08-03 15:16 | NUR ---
Call received from Juan Pablo, of patient. He requests update. Update given. He also requests that Dr. Gomez call him so they can discuss this patient's plan of care. He states that he wants to take patient off the ventilator because this isn't what she would want for herself and she wouldn't have much quality of life. I respond stating that i would pass his phone number on to Dr. Gomez and let him know the is requesting a phone call.
--- NOTE | 2021-08-03 17:45 | NUR ---
DR. MANCILLA MEETS WITH FAMILY AT THIS TIME. EXPRESSES WISHES TO TAKE PATIENT OFF VENTILATOR AND MAKE HER COMFORTABLE.
--- NOTE | 2021-08-03 18:21 | NUR ---
FAMILY PRESENT AND WISHES TO PROCEED WITH EXTUBATION AND COMFORT CARE. DR. MANCILLA CALLED AND MESSAGE LEFT FOR COMFORT CARE ORDERS.
--- NOTE | 2021-08-03 18:26 | NUR ---
SPOKE WITH DR. MANCILLA. ORDERS RECEIVED FOR COMFORT MEASURES
--- NOTE | 2021-08-03 18:55 | NUR ---
Patient was extubated to room air and comfort measures at 1843 with YESSENIA Márquez. and grandson at bedside after extubation
--- NOTE | 2021-08-03 19:00 | NUR ---
Received report from ZORAIDA Rivera.
--- NOTE | 2021-08-03 19:29 | NUR ---
Pt extubated compassionately to room air at 1843 with ZORAIDA Rivera, , and son at bedside.
--- NOTE | 2021-08-03 20:00 | NUR ---
Patient's and grandson at bedside. Vitals at this time within normal limits; she is satting 95% on room air, however, 10-15 second periods of apnea noted. Patient appears quite restless, PRN morphine administered.
[2021-08-04] VITALS (472 sets, daily range): BP systolic 148–156; BP diastolic 92–98; PULSE 117–118; TEMP 97.5–97.7; O2SAT 63–100
--- NOTE | 2021-08-04 01:30 | NUR ---
Throughout shift, patient has been extremely restless. PRN ativan and morphine administered at regular intervals. Patient frequently rolling into side rails and removing gown; she often dangles her legs out of bed. Patient is awake, however, she is not tracking movements or following verbal commands. She requires repositioning every 30-45 minutes to remain safely in bed. [facility] physician Dr. Vasyl Demarco notified. Discussed the above. Received orders to restart versed drip, titrating to promote patient comfort.
--- NOTE | 2021-08-04 07:24 | NUR ---
REPORT GIVEN TO ZORAIDA DIANA.
--- NOTE | 2021-08-04 10:00 | NUR ---
and grandson in room visiting with proper PPE
--- NOTE | 2021-08-04 12:00 | NUR ---
Visitors left for lunch
--- NOTE | 2021-08-04 14:30 | NUR ---
and grandson back in room visiting.
--- NOTE | 2021-08-04 16:30 | NUR ---
and grandson informed pt will be trasfered to Medical floor, they decided to leave and grab dinner during transfer and return later. Pt belongings sent with . Per , home requested is [facility] located in [place], [place] [facility]
--- NOTE | 2021-08-04 20:06 | NUR ---
PT NOT ALERT, UNABLE TO FOLLOW VERBAL COMMANDS OR [employer]GE [employer]. PT LUNG SOUNDS COARSE, WET UPON AUSCULTATION THROUGHOUT ALL LOBES, WORST IN LOWER LOBES. PT AND GRANDSON AT BEDSIDE, REQUESTING MEDICATION FOR COMFORT. PRN PAIN MEDICATION ADMINISTERED PER ORDERS. EDUCATED FAMILY TO BEST OF ABILITY. CALL LIGHT WITHIN REACH.
--- NOTE | 2021-08-04 22:15 | NUR ---
JOSE ALFREDO notified of TOD, 08/04/21 at 2950. Not a candidate for donation #[phone].
--- NOTE | 2021-08-04 22:16 | NUR ---
TIME OF VERIFIED WITH ZORAIDA BURRELL. TIME OF 2119. POST MORTEM CARE PROVIDED.
--- NOTE | 2021-08-04 23:58 | NUR ---
PT TRANSPORTED OUT AT 2340 VIA STRETCHER. [employer] SIGNED RELEASE PAPERWORK AND WAS GIVEN ORIGINAL. COPY PLACED IN PT CHART.
--- NOTE | 2021-08-05 05:28 | NUR ---
BACK CHARTING AT THIS TIME. AT 2099, THERAPEUTIC STRATEGY LEAD INFORMED THIS RN OF FAMILY CALLING OUT. NOTIFIED POLITICAL CARTOONIST OF IMMINENT , INSTRUCTED THAT TWO RNS ARE NEEDED TO VERIFY. AT 2119, VERIFIED TIME OF WITH ZORAIDA BURRELL. INFORMED EMT BASIC OF PATIENT AT 2119. EMT BASIC VERBALLY VERIFIED THEY WERE IN PRESENCE OF LAURYN, CANE PILER AND WILL RELAY TIME OF . AT [address] MANCILLA OF PT . DR. MANCILLA VERBALIZED CONFIRMATION.
== END 2021-08-04 23:40 | disposition expired | DRG 207 ==
LOC: COL.ER 13:32 → ICU 20:19 → MEDICAL 08-04 17:11
PROVIDERS: Emergency Medicine; Internal Medicine Pulmonary Disease; Student in an Organized Health Care Education/Training Program; ADMIT Internal Medicine Nephrology
PROC: 06HN33Z Insertion of Infusion Device into Left Femoral Vein, Percutaneous Approach (ICD-10-PCS; principal; 2021-07-27)
PROC: 5A1955Z Respiratory Ventilation, Greater than 96 Consecutive Hours (ICD-10-PCS; 2021-07-28)
PROC: 5A1D70Z Performance of Urinary Filtration, Intermittent, Less than 6 Hours Per Day (ICD-10-PCS; 2021-07-28)
PROC: 0BH17EZ Insertion of Endotracheal Airway into Trachea, Via Natural or Artificial Opening (ICD-10-PCS; 2021-07-28)
DX: J18.9 Pneumonia, unspecified organism (principal); J96.01 Acute respiratory failure with hypoxia; N18.6 End stage renal disease; I12.0 Hypertensive chronic kidney disease with stage 5 chronic kidney disease or end stage renal disease; D63.1 Anemia in chronic kidney disease; E11.22 Type 2 diabetes mellitus with diabetic chronic kidney disease; I48.91 Unspecified atrial fibrillation; Z66 Do not resuscitate; Z51.5 Encounter for palliative care; E66.9 Obesity, unspecified; M06.9 Rheumatoid arthritis, unspecified; E78.5 Hyperlipidemia, unspecified; E11.649 Type 2 diabetes mellitus with hypoglycemia without coma; F32.9 Major depressive disorder, single episode, unspecified; M19.90 Unspecified osteoarthritis, unspecified site; K59.00 Constipation, unspecified; K21.9 Gastro-esophageal reflux disease without esophagitis; E11.65 Type 2 diabetes mellitus with hyperglycemia; Z99.2 Dependence on renal dialysis; Z79.82 Long term (current) use of aspirin; Z79.4 Long term (current) use of insulin; Y95 Nosocomial condition; Z90.710 Acquired absence of both cervix and uterus; Z90.89 Acquired absence of other organs; Z68.31 Body mass index [BMI] 31.0-31.9, adult
CPT/HCPCS: C9113; J0348; J0360; J0696; J1100; J1200; J1450; J1630; J1644; J1650; J1815; J2060; J2250; J2270; J2405; J2543; J2704; J2765; J3010; J3370; J3475; J7030; J7040; J7050; Q5105; Q9967